=== PATIENT | male | born 1965 | race African-American/Black ===

== ENCOUNTER 2016-05-15 14:49 | Inpatient (IN) | payer MEDICAID ==
[~2016-05-15] VITALS: Ht 172.7 cm; Wt 61.6 kg
--- NOTE | ~2016-05-15 | HEMODYNAMI ---
PATIENT:ORLANDO ELIAS JR MEDICAL RECORD: [id number] : 63 [address] [id number] ADMISSION DATE: 05/15/16 Generatedon:05/17/201612:27 Patient name: ORLANDO ELIAS Patient #: [id number] SSN: : 1965 Date of study: 05/17/2016 Page: Of Hemodynamic Procedure Report Patient Data Patient Demographics Procedure consent was obtained First Name: ORLANDO Gender: Male Last Name: JADA Suffix: Patient #: [id number] : 1965 Age: 50 year(s) Accession #: Race: Black [id number] Additional ID: [id number] Contact details [address]: [address] [place] [address] [place] State: [place] City: [place] Zip code: [address] Past Medical History Allergies: No known allergies Admission Admission Data Admission Date: 05/15/2016 Admission Time: 19:31 Room #: [facility] Procedure Procedure Types Cath Procedure Peripheral Cath Diagnostic Procedure Miscellaneous Peripheral vascular Intervention Angioplasty Angioplasty Fem/Pop Procedure Description Procedure Date Procedure Date: 05/17/2016 Procedure Start Time: 10:06 Procedure Staff Name Function Uri Alatorre MD Performing Physician Ketty Nye RT Scrub Robyn De La Garza RN Nurse Irineo Hussein RT Monitor Procedure Data Cath Procedure Fluoroscopy Diagnostic fluoroscopy Total fluoroscopy Time: time: 17.7 min 17.7 min Diagnostic fluoroscopy Total fluoroscopy dose: 136 dose: 136 mGy mGy Contrast Material Contrast Material Type Amount (ml) Isovue 370 0 Procedure Medications Medication Administration Route Dosage Ancef (1Gm/50ml NS) I.V.P.B 1 g Versed I.V. 2 mg Heparin Bolus I.V. 5000 units Fentanyl I.V. 50 mcg Versed I.V. 2 mg Fentanyl I.V. 50 mcg Nitroglycerin IC/IA I.A. 200 mcg Heparin Bolus I.V. 3000 units Nitroglycerin IC/IA I.A. 200 mcg Nitroglycerin IC/IA I.A. 500 mcg Hemodynamics Rest Heart Rate: 89 (bpm) Snapshots Pre Cath Intra NCS Post Cath Vital Signs Time Heart Resp SPO2 NIBP (mmHg) Rhythm Pain Sedation Rate (ipm) (%) Status Level (bpm) 9:46:28 90 15 98 161/110(133) NSR 0 (11) 10(A) , No pain 9:50:43 94 12 100 176/115(140) NSR 0 (11) 10(A) , No pain 9:55:00 89 11 100 151/107(143) NSR 0 (11) 10(A) , No pain 9:59:12 83 11 100 160/105(142) NSR 0 (11) 10(A) , No pain 10:03:29 86 10 100 157/104(128) NSR 0 (11) 10(A) , No pain 10:07:42 90 11 100 161/107(138) NSR 0 (11) 10(A) , No pain 10:11:59 87 10 100 161/102(138) NSR 0 (11) 10(A) , No pain 10:16:14 87 11 100 161/105(135) NSR 0 (11) 10(A) , No pain 10:20:29 89 12 100 134/99(120) NSR 0 (11) 9(A) , No pain 10:24:34 88 13 100 136/96(116) NSR 0 (11) 9(A) , No pain 10:28:44 90 12 100 130/84(106) NSR 0 (11) 9(A) , No pain 10:32:48 85 15 135/92(119) NSR 0 (11) 9(A) , No pain 10:36:54 87 11 100 130/92(123) NSR 0 (11) 9(A) , No pain 10:40:59 87 15 100 139/90(118) NSR 0 (11) 9(A) , No pain 10:45:05 87 12 100 142/106(127) NSR 0 (11) 9(A) , No pain 10:49:13 90 11 100 148/99(128) NSR 0 (11) 9(A) , No pain 10:53:25 92 14 100 128/94(116) NSR 0 (11) 9(A) , No pain 10:57:29 90 12 100 141/94(129) NSR 0 (11) 9(A) , No pain 11:01:37 91 13 100 138/94(106) NSR 0 (11) 9(A) , No pain 11:05:45 91 12 100 119/90(113) NSR 0 (11) 9(A) , No pain 11:09:46 90 13 100 126/87(97) NSR 0 (11) 9(A) , No pain 11:13:50 90 11 100 115/87(106) NSR 0 (11) 9(A) , No pain 11:17:52 89 12 100 117/84(110) NSR 0 (11) 9(A) , No pain 11:21:51 91 12 100 124/90(120) NSR 0 (11) 9(A) , No pain 11:25:57 90 11 99 128/82(103) NSR 0 (11) 9(A) , No pain 11:30:03 90 13 100 125/81(104) NSR 0 (11) 9(A) , No pain 11:34:05 92 11 100 132/91(110) NSR 0 (11) 9(A) , No pain 11:38:08 88 12 99 128/96(121) NSR 0 (11) 9(A) , No pain 11:42:14 87 12 100 131/84(108) NSR 0 (11) 9(A) , No pain 11:46:20 85 11 100 132/87(110) NSR 0 (11) 9(A) , No pain 11:50:26 85 12 100 122/88(101) NSR 0 (11) 9(A) , No pain 11:54:29 86 11 99 120/81(117) NSR 0 (11) 9(A) , No pain 11:58:31 89 11 100 126/87(99) NSR 0 (11) 9(A) , No pain 12:02:37 84 12 100 122/82(96) NSR 0 (11) 9(A) , No pain 12:06:43 83 11 100 122/79(115) NSR 0 (11) 9(A) , No pain 12:10:46 81 13 100 133/82(117) NSR 0 (11) 9(A) , No pain 12:14:54 80 12 100 117/85(111) NSR 0 (11) 9(A) , No pain 12:18:54 128/91(119) NSR 0 (11) 9(A) , No pain 12:22:54 No Cuff NSR 0 (11) 10(A) , No pain 12:26:53 No Cuff NSR 0 (11) 9(A) , No pain Medications Time Medication Route Dose Verified Delivered Reason Notes E ffectiveness by by 9:59:02 Ancef I.V.P.B 1 g Robyn Robyn Per protocol (1Gm/50ml NS) Holli De La Garza RN RN 10:13:53 Versed I.V. 2 mg Robyn Robyn for sedation Holli De La Garza RN RN 10:20:08 Heparin Bolus I.V. 5000 Robyn Robyn for units Holli De La Garza anticoagulation RN RN 10:24:49 Fentanyl I.V. 50 Robyn Robyn for sedation mcg Holli De La Garza RN RN 10:47:13 Versed I.V. 2 mg Robyn Robyn for sedation Holli De La Garza RN RN 10:47:21 Fentanyl I.V. 50 Robyn Robyn for sedation mcg Holli De La Garza RN RN 11:05:07 Nitroglycerin I.A. 200 Robyn Uri for IC/IA mcg Holli Alatorre MD vasodilation RN 11:10:02 Heparin Bolus I.V. 3000 Robyn Robyn for units Holli De La Garza anticoagulation RN RN 11:20:50 Nitroglycerin I.A. 200 Robyn Uri for IC/IA mcg Holli Alatorre MD vasodilation RN 11:54:07 Nitroglycerin I.A. 500 Robyn Uri for IC/IA mcg Holli Alatorre MD vasodilation fingerprint clerk Log Time Note 9:43:51 Irineo Hussein RT (R) (CV) sent for patient. Start room use. 9:44:03 Time tracking: Regular hours 9:44:13 Plan of Care:Hemodynamics will remain stable., Cardiac rhythm will remain stable., Comfort level will be maintained., Respiratory function will remain adequate., Patient/ family verbilizes understanding of procedure., Procedure tolerated without complication., Recovers from procedure without complications.. 9:44:24 Patient received from CVICU to IR Alert and oriented. Tansferred to table in Supine position. 9:44:26 Correct patient and procedure confirmed by team. 9:44:28 Signed procedure consent form obtained from patient. 9:44:32 Full Disclosure recording started 9:44:33 - 9:44:36 H&P Date Dictated: 05/17/2016 Within 30 days and on chart.. 9:44:37 Pre-procedure instructions explained to patient. 9:44:38 Pre-op teaching completed and patient verbalized understanding. 9:44:45 Family in waiting room. 9:44:46 Patient NPO since Midnight. 9:44:53 Is the patient allergic to Iodine/contrast media? No. 9:44:56 Is patient on blood thinner?Yes 9:45:03 ACC The patient was administered the following blood thiners within the last 24 hours: ACCHeparin 9:45:15 tpa infusion 9:45:17 Vital chart was started 9:45:18 Baseline sample Acquired. 9:45:21 Rhythm: sinus rhythm 9:45:24 - 9:45:25 ----Pre-sedation anethsthesia assessment.---- 9:45:28 Previous problem with sedation/anesthesia? No ? 9:45:30 Snore? No 9:45:31 Sleep apnea? No 9:45:33 Deviated septum? No 9:45:36 Opens mouth fully? Yes 9:45:37 Sticks out tongue? Yes 9:45:42 Airway obstruction? No ? 9:45:44 Dentures? No ? 9:48:19 Pre procedure: right dorsailis pedis pulse Doppler 9:48:23 Pre procedure: left dorsailis pedis pulse Doppler 9:48:26 Pre procedure: right posterior tibial pulse Doppler 9:48:29 Pre procedure: left posterior tibial pulse Doppler 9:48:35 Patient pain scale 0/10 no pain. 9:48:48 IV patent on arrival in left antecubital with 0.9% NaCl at [facility]. 9:48:50 Sharps counted by scrub and verified by R.N. 9:48:52 Alarms reviewed by R. N. 9:48:58 Right groin area was prepped with chlora-prep and draped in sterile fashion 9:49:14 Use device set IR Diagnostic 9:49:15 Sterile Angiographic Pack opened to sterile field. 9:49:17 Bag Decanter opened to sterile field. 9:49:18 Acist Manifold opened to sterile field. 9:49:19 Acist Syringe opened to sterile field. 9:49:20 Acist Hand Control opened to sterile field. 9:59:02 Ancef (1Gm/50ml NS) 1 g I.V.P.B was administered by Robyn De La Garza RN ; Per protocol; 10:05:06 Procedure started. 10:05:12 Physician arrived 10:05:12 --------ALL STOP TIME OUT------ 10:05:13 Final Timeout: patient, procedure, and site verified with staff and physician. All members of the team are in agreement. 10:05:15 Right groin site verified by team. 10:05:18 Physical assessment completed. ASA score P 3 - A patient with severe systemic disease as per Uri Alatorre MD. 10:05:22 Sedation plan: IV Moderate Sedation Versed, Fentanyl 10:06:20 Local anesthetic to right femoral artery with Lidocaine 1% by Uri Alatorre MD.INITIAL ACCESS ONLY 10:08:17 Cook JUSTINE 260 guide wire opened to sterile field. 10:13:53 Versed 2 mg I.V. was administered by Robyn De La Garza RN; for sedation; 10:14:02 Terumo 5FR ANGLED 100CM glide catheter opened to sterile field. 10:17:42 Terumo 6Fr [place] Destination Sheath opened to sterile field. 10:17:52 BasixTOUCH Inflation Syringe opened to sterile field. 10:20:08 Heparin Bolus 5000 units I.V. was administered by Robyn De La Garza RN; for anticoagulation; 10:22:04 Inflation number: 1 A Cordis Powerflex Pro 3.0 x 40 x 135cm balloon was prepped and advanced across the Undefined1, then inflated to 0 JOHN for 0:00 (min:sec). 10:24:49 Fentanyl 50 mcg I.V. was administered by Robyn De La Garza RN; for sedation; 10:31:02 Inflation number: 2 A IN.PACT Admiral 5.0 x 120 x 135 DCB Balloon was prepped and advanced across the Undefined1, then inflated to 0 JOHN for 0:00 (min:sec). 10:41:55 Terumo ANGLE 260cm glide wire opened to sterile field. 10:41:55 Trailblazer 0.035 catheter opened to sterile field. 10:45:27 Terumo TORQUE DEVICE PLASTIC .038 opened to sterile field. 10:45:48 Procedure type changed to Cath procedure, Peripheral Cath Diagnostic Procedure, Miscellaneous, Peripheral vascular Intervention, Angioplasty, Angioplasty Fem/Pop 10:47:13 Versed 2 mg I.V. was administered by Robyn De La Garza RN; for sedation; 10:47:21 Fentanyl 50 mcg I.V. was administered by Robyn De La Garza RN; for sedation; 10:49:51 Melrose Sci Choice PT Floppy J 300cm 0.014 guide wi opened to sterile field. 10:50:10 Inflation number: 3 A Saber 2 x 150 x150 balloon was prepped and advanced across the Undefined1, then inflated to 0 JOHN for 0:00 (min:sec). 10:56:57 Inflation number: 4 A Saber 2.5 X 100 X 150 balloon was prepped and advanced across the Undefined1, then inflated to 0 JOHN for 0:00 (min:sec). 11:05:07 Nitroglycerin IC/IA 200 mcg I.A. was administered by Uri Alatorre MD; fo r vasodilation; 11:10:02 Heparin Bolus 3000 units I.V. was administered by Robyn De La Garza RN; for anticoagulation; 11:20:50 Nitroglycerin IC/IA 200 mcg I.A. was administered by Uri Alatorre MD; fo r vasodilation; 11:37:00 St Johnny 6Fr sheath opened to sterile field. 11:54:07 Nitroglycerin IC/IA 500 mcg I.A. was administered by Uri Alatorre MD; fo r vasodilation; 11:58:33 CRAGG-CELSO 10cm infusion catheter opened to sterile field. 12:00:54 [facility] 260 .035 glide wire opened to sterile field. 12:03:51 SUTURE ETHILON 2-0 BLK MONO FS opened to sterile field. 12:06:41 Procedure ended.(Physican Out) 12:08:44 Fluoroscopy time 17.70 minutes. 12:08:51 Fluoroscopy dose: 136 mGy 12:08:51 Flurop Dose total: 136 12:08:56 Contrast amount:Isovue 370 0ml. 12:08:58 Sharps counted by scrub and verified by R.N. 12:09:01 Insertion/operative site no bleeding no hematoma. 12:09:04 Post-op/insertion site Right Femoral artery dressed using a 4 x 4 and Tegaderm. 12:09:08 Post right femoral artery:stable 12:17:24 Post procedure: right dorsailis pedis pulse Doppler. 12:17:30 Post procedure: right posterior tibial pulse Doppler. 12:17:42 Post procedure: left posterior tibial pulse 0-Absent. 12:17:53 Post procedure: left dorsailis pedis pulse 0-Absent. 12:17:57 Post-procedure physical assessment completed. ASA score P 3 - A patient with severe systemic disease as per Uri Alatorre MD. 12:18:00 Post procedure rhythm: unchanged. 12:18:02 Post procedure instruction explained to patient.Patient verbalizes understanding. 12:18:08 Procedure and supply charges have been captured, reviewed, submitted an d are correct. 12:26:55 Report given to CVICU. 12:26:59 Patient transfered to CVICU with Bed. 12:27:31 Vital chart was stopped Intervention Summary Intervention Notes Time ActionType Lesion and Equipment Action# Pressure Duration Attributes Used 10:22:04 Inflate Undefined1 Cordis 1 0 00:00 balloon Powerflex Pro 3.0 x 40 x 135cm balloon 10:31:02 Inflate Undefined1 IN.PACT 2 0 00:00 balloon Admiral 5.0 x 120 x 135 DCB Balloon 10:50:10 Inflate Undefined1 Saber 2 x 3 0 00:00 balloon 150 x150 balloon 10:56:57 Inflate Undefined1 Saber 2.5 4 0 00:00 balloon X 100 X 150 balloon Device Usage Item Name Manufacture Quantity Catalog Number [facility] Lot# / Charge Number Stock Stock Serial# Code Sterile Cardinal 1 [id number] 5 Angiographic Health Pack Bag Decanter Microtek 1 [id number] 27833 150036 5 Medical Inc. Acist Manifold Acist 1 59026 545448 313811 889889 5 Medical Systems Inc Acist Syringe Acist 1 97032 401738 632219 317326 20 Medical Systems Inc Acist Hand Acist 1 39353 267392 381504 398768 5 Control Medical Systems Inc Cook FLETCHER 260 Cook Medical 1 [id number] 887893 420369 5 1878220 guide wire Terumo 5FR Terumo 1 CG508 993918 70026 968196 4 ANGLED 100CM glide catheter Terumo 6Fr Terumo 1 RSR01 820672 07749 380965 5 [place] Destination Sheath BasixTOUCH Merit 1 [id number] 726858 593461 122725 5 Inflation Medical Syringe Cordis Cardinal 1 [id number] 435458 401086 502947 5 Powerflex Pro Health 3.0 x 40 x 135cm balloon IN.PACT Medtronic 1 [id number] 443494 718413 519093 5 [id number] Admiral 5.0 x 120 x 135 DCB Balloon Terumo ANGLE Terumo 1 [id number] 413228 400766 405971 5 260cm glide wire Trailblazer Medtronic 1 [id number] 295568 38541 916075 5 0.035 catheter Terumo TORQUE [place] 1 TD01 897191 472059 797348 5 DEVICE PLASTIC Scientific .038 [place] Sci Melrose 1 [id number] 436498 683450 894029 5 [id number] Choice PT Scientific Floppy J 300cm 0.014 guide wi Saber 2 x 150 Cardinal 1 [id number] 042913 141715 5 x150 balloon Health Saber 2.5 X Cardinal 1 [id number] 874235 387938 5 [address] X [address] St Johnny 1 581720 642307 849773 5 2335910 sheath BROOKS Ev3 1 28061-47 884803 678467 5 10cm infusion catheter [facility] 1 [id number] 533520 467704 5 [id number] [facility] 260 .035 glide wire SUTURE ETHILON Ethicon 1 664 617760 920978 5 2-0 BLK MONO FS Signature Audit Cisco Stage Time Signature Unsigned Intra-Procedure 05/17/2016 Irineo 12:27:28 PM Keenan RT (R) (CV) Signatures Monitor : Irineo Signature : Keenan RT Date : Time : [id number] [place] [address]
--- NOTE | ~2016-05-15 | HEMODYNAMI ---
PATIENT:ORLANDO ELIAS JR MEDICAL RECORD: [id number] : 63 [address] [id number] ADMISSION DATE: 05/15/16 Generatedon:05/18/201614:10 Patient name: ORLANDO ELIAS Patient #: [id number] SSN: : 1965 Date of study: 05/18/2016 Page: Of Hemodynamic Procedure Report Patient Data Patient Demographics Procedure consent was obtained First Name: ORLANDO Gender: Male Last Name: JADA Suffix: Patient #: [id number] : 1965 Age: 50 year(s) Accession #: Race: Black [id number] Additional ID: [id number] Contact details [address]: [address] [place] [address] [place] State: [place] City: [place] Zip code: [address] Past Medical History Allergies: No known allergies Admission Admission Data Admission Date: 05/15/2016 Admission Time: 19:31 Room #: [facility] Procedure Procedure Types Cath Procedure Peripheral Cath Diagnostic Procedure Abd/Extremity Extremities Left Lower Ext Arterio Follow Up Arteriogram Procedure Description Procedure Date Procedure Date: 05/18/2016 Procedure Start Time: 13:33 Procedure Staff Name Function Ramon Thakur MD Performing Physician Ketty Nye RT Scrub Yolanda Nelson RN Nurse Irineo Hussein RT Monitor Procedure Data Cath Procedure Fluoroscopy Diagnostic fluoroscopy Total fluoroscopy Time: 0.9 time: 0.9 min min Diagnostic fluoroscopy Total fluoroscopy dose: 15 dose: 15 mGy mGy Contrast Material Contrast Material Type Amount (ml) Isovue 300 36 Procedure Medications Medication Administration Route Dosage Oxygen NC 3 l/min Heparin Flush Bag added to field 3 bags (1000units/500ml NS) Lidocaine 1% added to field 20 Versed I.V. 1 mg Fentanyl I.V. 50 mcg Versed I.V. 1 mg Fentanyl I.V. 50 mcg Reopro 7.6 ml (Bolus-2mg/ml) Versed I.V. 1 mg Fentanyl I.V. 50 mcg Reopro Drip I.V. drip 21 ml/hr (4.5ml/250NS) Hemodynamics Rest Heart Rate: 87 (bpm) Snapshots Pre Cath Intra NCS Post Cath Vital Signs Time Heart Resp SPO2 NIBP (mmHg) Rhythm Pain Sedation Rate (ipm) (%) Status Level (bpm) 13:12:50 98 165/112(150) NSR 0 (11) 10(A) , No pain 13:17:08 97 172/103(156) NSR 0 (11) 10(A) , No pain 13:21:26 88 12 100 148/105(143) NSR 0 (11) 10(A) , No pain 13:26:25 90 12 100 Measuring NSR 0 (11) 10(A) , No pain 13:27:47 90 10 100 Time NSR 0 (11) 10(A) Exceeded , No pain 13:32:22 88 10 100 136/98(129) NSR 0 (11) 10(A) , No pain 13:36:32 86 10 100 142/89(118) NSR 0 (11) 9(A) , No pain 13:40:25 92 9 94 140/88(101) NSR 0 (11) 9(A) , No pain 13:44:25 91 9 94 116/80(102) NSR 0 (11) 10(A) , No pain 13:48:29 89 10 96 119/82(112) NSR 0 (11) 9(A) , No pain 13:52:34 89 10 94 124/84(107) NSR 0 (11) 9(A) , No pain 13:56:42 86 8 96 133/85(111) NSR 0 (11) 9(A) , No pain 14:00:54 88 9 95 128/81(107) NSR 0 (11) 9(A) , No pain 14:05:02 88 8 95 137/85(113) NSR 0 (11) 10(A) , No pain 14:09:02 No Cuff NSR 0 (11) 10(A) , No pain Medications Time Medication Route Dose Verified Delivered Reason Note s Effectiveness by by 13:19:43 Oxygen NC 3 l/min Yolanda Yolanda Per protocol King DERICK Nelson RN 13:19:56 Heparin Flush added 3 bags Yolanda Yolanda used for Bag to King DERICK Nelson RN procedure (1000units/500ml field NS) 13:20:06 Lidocaine 1% added 20ml Yolanda Yolanda for local to vial King DERICK Nelson RN anesthetic field 13:28:04 Fentanyl I.V. 50 mcg Yolanda Yolanda for sedation King DERICK Nelson RN 13:28:57 Versed I.V. 1 mg Yolanda Yolanda for sedation King DERICK Nelson RN 13:35:35 Versed I.V. 1 mg Yolanda Yolanda for sedation King DERICK Nelson RN 13:35:39 Fentanyl I.V. 50 mcg Yolanda Yolanda for sedation King DERICK Nelson RN 13:46:41 Versed I.V. 1 mg Yolanda Yolanda for sedation King DERICK Nelson RN 13:47:48 Fentanyl I.V. 50 mcg Yolanda Yolanda for sedation King DERICK Nelson RN 13:48:40 Reopro IA 7.6 ml Yolanda Ramon used for (Bolus-2mg/ml) Omar DERICK Thakur procedure 14:03:49 Reopro Drip I.V. 21ml/hr Yolanda Yolanda for (4.5ml/250NS) drip King DERICK Nelson DERICK anticoagulation Procedure Log Time Note 13:03:10 Time tracking: Regular hours 13:03:16 Plan of Care:Hemodynamics will remain stable., Cardiac rhythm will remain stable., Comfort level will be maintained., Respiratory function will remain adequate., Patient/ family verbilizes understanding of procedure., Procedure tolerated without complication., Recovers from procedure without complications.. 13:03:28 Patient received from CVICU to IR Alert and oriented. Tansferred to table in Supine position. 13:08:27 Correct patient and procedure confirmed by team. 13:08:29 Warm blankets applied, and sisi hugger turned on for patient comfort. 13:08:36 Signed procedure consent form obtained from patient. 13:08:38 Full Disclosure recording started 13:08:38 - 13:08:42 H&P Date Dictated: 05/18/2016 Within 30 days and on chart.. 13:08:44 Pre-procedure instructions explained to patient. 13:08:44 Pre-op teaching completed and patient verbalized understanding. 13:11:11 Family in patients room. 13:11:27 Patient NPO since Breakfast. 13:11:39 Baseline sample Acquired. 13:11:39 Vital chart was started 13:11:43 Rhythm: sinus rhythm 13:11:52 Is the patient allergic to Iodine/contrast media? No. 13:11:53 Is patient on blood thinner?Yes 13:11:56 ACC The patient was administered the following blood thiners within the last 24 hours: ACCHeparin 13:12:06 pt.on tpa drip 13:12:10 ----Pre-sedation anethsthesia assessment.---- 13:12:12 Previous problem with sedation/anesthesia? No ? 13:12:14 Snore? No 13:12:16 Sleep apnea? No 13:12:21 Deviated septum? No 13:12:23 Opens mouth fully? Yes 13:12:25 Sticks out tongue? Yes 13:12:28 Airway obstruction? No ? 13:12:31 Dentures? No ? 13:12:32 - 13:12:37 Pre procedure: right dorsailis pedis pulse Doppler 13:12:46 Pre procedure: right posterior tibial pulse Doppler 13:12:50 Pre procedure: left dorsailis pedis pulse Doppler 13:12:54 Pre procedure: left posterior tibial pulse 0-Absent 13:13:00 Patient pain scale 0/10 no pain. 13:13:17 IV patent on arrival in left antecubital with 0.9% NaCl at [facility]. 13:13:18 Sharps counted by scrub and verified by R.N. 13:13:24 Right groin area was prepped with betadine and draped in sterile fashio n 13:13:29 Use device set IR Diagnostic 13:13:30 Sterile Angiographic Pack opened to sterile field. 13:13:30 Bag Decanter opened to sterile field. 13::43 Oxygen 3 l/min NC was administered by Yolanda Nelson RN; Per protocol; 13:19:56 Heparin Flush Bag (1000units/500ml NS) 3 bags added to field was administered by Yolanda Nelson RN; used for procedure; 13:20:06 Lidocaine 1% 20ml vial added to field was administered by Yolanda Nelson RN; for local anesthetic; 13::43 Physician arrived 13::43 --------ALL STOP TIME OUT------ 13::44 Final Timeout: patient, procedure, and site verified with staff and physician. All members of the team are in agreement. 13::47 Right groin site verified by team. 13::51 Physical assessment completed. ASA score P 3 - A patient with severe systemic disease as per Ramon Thakur MD. 13:27:54 Sedation plan: IV Moderate Sedation Versed, Fentanyl 13:28:04 Fentanyl 50 mcg I.V. was administered by Yolanda Nelson RN; for sedation; 13:28:57 Versed 1 mg I.V. was administered by Yolanda Nelson RN; for sedation; 13:32:59 Procedure started. 13:33:02 Local anesthetic to right femoral artery with Lidocaine 1% by Ramon Thakur MD.INITIAL ACCESS ONLY 13:35:35 Versed 1 mg I.V. was administered by Yolanda Nelson RN; for sedation; 13:35:39 Fentanyl 50 mcg I.V. was administered by Yolanda Nelson RN; for sedation; 13:46:41 Versed 1 mg I.V. was administered by Yolanda Nelson RN; for sedation; 13:47:48 Fentanyl 50 mcg I.V. was administered by Yolanda Nelson RN; for sedation; 13:48:40 Reopro (Bolus-2mg/ml) 7.6 ml IA was administered by Ramon Thakur MD; used for procedure; 13:48:55 Cook DOC .035 guide wire opened to sterile field. 13:52:11 ANGIOSEAL-VIP PLUS 6 FR opened to sterile field. 13:52:30 Procedure ended.(Physican Out) 13:53:15 Fluoroscopy time 00.90 minutes. 13:53:19 Fluoroscopy dose: 15 mGy 13:53:19 Flurop Dose total: 15 13:54:57 Contrast amount:Isovue 300 36ml. 13:56:27 Post-op/insertion site Right Femoral artery dressed using a 4 x 4 and Tegaderm. 13:57:03 Post right femoral artery:stable 13:58:21 Post Procedure Pulses reassessed and unchanged 13:58:26 Post-procedure physical assessment completed. ASA score P 3 - A patient with severe systemic disease as per Ramon Thakur MD. 13:58:39 Post procedure rhythm: unchanged. 13:58:42 Post procedure instruction explained to patient.Patient verbalizes understanding. 13:58:43 Procedure and supply charges have been captured, reviewed, submitted an d are correct. 13:59:32 Report given to CVICU. 14:03:49 Reopro Drip (4.5ml/250NS) 21ml/hr I.V. drip was administered by Yolanda Nelson RN; for anticoagulation; 14:09:12 Patient transfered to CVICU with Bed. 14:10:09 Vital chart was stopped Device Usage Item Name Manufacture Quantity Catalog Hospital Part Current [facility] l Lot# / Number Charge Number Stock Stock Serial# Code Sterile [place] 1 [id number] 5 Angiographic Health Pack Bag Decanter [employer] 1 [id number] 5 [employer] Cook DOC .035 [employer] 1 [id number] 5 [id number] guide wire ANGIOSEAL-[facility] [place] 1 [id number] 5 [id number] PLUS 6 FR Signature Audit [place] Stage Time Signature Unsigned Intra-Procedure 05/18/2016 Irineo 2:10:07 PM Keenan RT (R) (CV) Signatures Monitor : Irineo Signature : Keenan RT Date : Time : [address] [place] [address]
--- NOTE | ~2016-05-15 | HEMODYNAMI ---
PATIENT:ORLANDO ELIAS JR MEDICAL RECORD: [id number] : 63 LOCATION:[address] ADMISSION DATE: 05/15/16 Generatedon:05/16/201613:22 Patient name: ORLANDO ELIAS Patient #: [id number] SSN: : 1965 Date of study: 05/16/2016 Page: Of Hemodynamic Procedure Report Patient Data Patient Demographics Procedure consent was obtained First Name: ORLANDO Gender: Male Last Name: JADA Suffix: Patient #: [id number] : 1965 Age: 50 year(s) Accession #: Race: Black [id number] Additional ID: [id number] Contact details Address: [address] [place] [address] [place] State: [place] City: [place] Zip code: [address] Past Medical History Allergies: No known allergies Admission Admission Data Admission Date: 05/15/2016 Admission Time: 19:31 Room #: 2120 Procedure Procedure Types Cath Procedure Peripheral Cath Diagnostic Procedure Abd/Extremity Extremities Left Lower Ext Arterio Procedure Description Procedure Date Procedure Date: 05/16/2016 Procedure Start Time: 11:39 Procedure Staff Name Function Uri Alatorre MD Performing Physician Ketty Nye RT Scrub Robyn De La Garza RN Nurse Irineo Hussein RT Monitor Yolanda Nelson RN Nurse Procedure Data Cath Procedure Fluoroscopy Diagnostic fluoroscopy Total fluoroscopy Time: time: 11.5 min 11.5 min Diagnostic fluoroscopy Total fluoroscopy dose: 208 dose: 208 mGy mGy Contrast Material Contrast Material Type Amount (ml) Isovue 300 72 Entry Location Entry Primary Successful Side Size Upsize 1 Upsize Entry Closure Naranjo ccessful Closure Location (Fr) (Fr) 2 (Fr) Remarks Device Remarks Femoral Right 5 Fr 6 Fr artery Mid-Length Diagnostic catheters Device Type Used For End Catheter Placement Merit ULTRA BOLUS FLUSH 5Fr 65CM catheter Procedure Medications Medication Administration Route Dosage Oxygen NC 3 l/min Heparin Flush Bag added to field 3 bags (1000units/500ml NS) Lidocaine 1% added to field 20 Fentanyl I.V. 50 mcg Versed I.V. 1 mg Fentanyl I.V. 50 mcg Versed I.V. 1 mg Fentanyl I.V. 50 mcg Versed I.V. 1 mg Versed I.V. 1 mg Fentanyl I.V. 50 mcg Heparin Bolus I.V. 5000 units TPA 10 Benadryl I.V. 50 mg Hydralizine I.V. 20 mg Ancef (1Gm/50ml NS) I.V.P.B 1 g Lopressor I.V. 5 mg Versed I.V. 1 mg Fentanyl I.V. 50 mcg Heparin Drip units/hr (06122lpwqg/250 D5W) TPA 12.5 Versed I.V. 1 mg Fentanyl I.V. 50 mcg Hemodynamics Rest Heart Rate: 121 (bpm) Snapshots Pre Cath Intra NCS Post Cath Vital Signs Time Heart Resp SPO2 NIBP (mmHg) Rhythm Pain Status Sedation Rate (ipm) (%) Level (bpm) 11:21:05 119 14 100 169/129(152) NSR 10 (11) , 10(A) Unimaginable unspeakable 11:25:21 122 13 100 176/125(157) ST 10 (11) , 10(A) Unimaginable unspeakable 11:29:39 120 14 100 181/128(143) ST 10 (11) , 10(A) Unimaginable unspeakable 11:33:59 120 11 100 174/123(147) ST 10 (11) , 10(A) Unimaginable unspeakable 11:38:24 121 19 100 167/77(103) ST 9 (11) , 10(A) Excruciating unbearable 11:42:40 119 9 100 168/123(146) ST 4 (11) , 10(A) Distressing 11:46:55 117 10 100 178/128(152) ST 0 (11) , No 9(A) pain 11:51:14 120 9 100 175/127(150) ST 0 (11) , No 9(A) pain 11:55:32 117 14 100 169/124(146) ST 4 (11) , 10(A) Distressing 11:59:48 118 9 100 173/122(145) ST 0 (11) , No 9(A) pain 12:04:06 119 8 100 173/127(149) ST 0 (11) , No 9(A) pain 12:08:22 120 9 100 182/126(150) ST 0 (11) , No 9(A) pain 12:12:42 118 9 100 172/129(147) ST 0 (11) , No 9(A) pain 12:16:58 120 11 100 180/131(155) ST 0 (11) , No 9(A) pain 12:21:16 124 9 100 177/125(156) ST 0 (11) , No 9(A) pain 12:25:32 126 12 100 159/114(129) ST 0 (11) , No 9(A) pain 12:29:42 134 16 100 151/111(128) ST 0 (11) , No 9(A) pain 12:33:52 137 20 100 148/110(125) ST 0 (11) , No 9(A) pain 12:38:00 138 21 100 151/108(124) ST 0 (11) , No 9(A) pain 12:42:08 130 21 99 148/105(125) ST 0 (11) , No 9(A) pain 12:46:16 105 17 100 167/113(140) ST 0 (11) , No 9(A) pain 12:50:29 102 17 99 168/115(139) ST 0 (11) , No 9(A) pain 12:54:43 103 16 99 165/109(133) ST 0 (11) , No 9(A) pain 12:58:57 104 19 98 154/85(133) ST 0 (11) , No 9(A) pain 13:03:07 106 17 99 153/103(130) ST 0 (11) , No 10(A) pain 13:07:17 109 18 99 162/115(135) ST 0 (11) , No 10(A) pain Medications Time Medication Route Dose Verified Delivered Reason N otes Effectiveness by by 11:24:15 Oxygen NC 3 l/min Yolanda Yolanda Per protocol King DERICK Nelson RN 11:24:31 Heparin Flush added to 3 bags Yolanda Yolanda used for Bag field King DERICK Nelson RN procedure (1000units/500ml NS) 11:24:43 Lidocaine 1% added to 20ml Yolanda Yolanda for local field vial Omar RN Omar RN anesthetic 11:25:08 Fentanyl I.V. 50 mcg Yolanda Yolanda for left foot King DERICK Nelson RN 11/21 pain 11:31:18 Versed I.V. 1 mg Yolanda Yolanda for sedation King DERICK Nelson RN 11:31:24 Fentanyl I.V. 50 mcg Yolanda Yolanda for left foot King DERICK Nelson RN 11/21 pain 11:41:45 Versed I.V. 1 mg Yolanda Yolanda for sedation King DERICK Nelson RN 11:41:59 Fentanyl I.V. 50 mcg Yolanda Yolanda for left foot King DERICK Nelson RN 09/21 pain 11:48:51 Versed I.V. 1 mg Yolanda Yolanda for sedation King DERICK Nelson RN 11:57:59 Versed I.V. 1 mg Yolanda Yolanda for sedation King DERICK Nelson RN 11:58:05 Fentanyl I.V. 50 mcg Yolanda Yolanda for left foot King DERICK Nelson RN 09/21 pain 12:10:45 Heparin Bolus I.V. 5000 Yolanda Yolanda for units King DERICK Nelson RN anticoagulation 12:14:54 TPA Angiojet 10 Yolanda Uri LLE mg/100ml King DERICK Alatorre MD NS 12:17:48 Benadryl I.V. 50 mg Yolanda Yolanda for sedation King DERICK Nelson RN 12:22:10 Hydralizine I.V. 20 mg Yolanda Yolanda for King DERICK Nelson RN hypertension 12:22:24 Ancef (1Gm/50ml I.V.P.B 1 g Yolanda Yolanda prophylactic NS) King DERICK Nelson RN 12:41:07 Lopressor I.V. 5 mg Robyn Robyn for tachycardia Holli Holli RN RN 12:45:43 Versed I.V. 1 mg Robny Robyn for sedation Holliluis armando Duronaway RN RN 12:45:51 Fentanyl I.V. 50 mcg Robyn Robyn for left foot Holli Duronaway 8/10 pain RN RN 12:55:14 Heparin Drip IA R units/hr Robyn Grewal for ([id number]/250 groin Holli Alatorre MD anticoagulation D5W) sheath RN 12:58:33 TPA IA R 12.5 Robyn Grewal for groin mg/250ml Holli Alatorre MD anticoagulation catheter NS RN 13:05:33 Versed I.V. 1 mg Yolanda Yolanda for sedation King DERICK Nelson RN 13:05:49 Fentanyl I.V. 50 mcg Yolanda Yolanda for left foot King DERICK Nelson RN pain Procedure Log Time Note 11:05:22 Irineo Hussein RT (R) (CV) sent for patient. Start room use. 11:05:37 Time tracking: Regular hours 11:05:49 Patient received from PCU to IR Alert and oriented. Tansferred to table in Supine position. 11:05:50 Correct patient and procedure confirmed by team. 11:05:52 Signed procedure consent form obtained from patient. 11:05:53 ECG and BP/O2 sat monitors applied to patient. 11:05:54 Full Disclosure recording started 11:05:54 - 11:05:59 H&P Date Dictated: 05/16/2016 Within 30 days and on chart.. 11:06:00 Pre-procedure instructions explained to patient. 11:06:00 Pre-op teaching completed and patient verbalized understanding. 11:06:02 Family in waiting room. 11:06:04 Patient NPO since Midnight. 11:08:22 Use device set IR Diagnostic 11:08:24 Bag Decanter opened to sterile field. 11:08:25 Sterile Angiographic Pack opened to sterile field. 11:08:26 Acist Manifold opened to sterile field. 11:08:26 Acist Hand Control opened to sterile field. 11:08:27 Acist Syringe opened to sterile field. 11:08:34 Is the patient allergic to Iodine/contrast media? No. 11:08:36 Is patient on blood thinner?No 11:08:44 Patient diabetic? No. 11:08:47 - 11:08:47 ----Pre-sedation anethsthesia assessment.---- 11:08:54 Previous problem with sedation/anesthesia? No ? 11:08:55 Snore? No 11:08:57 Sleep apnea? No 11:08:59 Deviated septum? No 11:09:00 Opens mouth fully? Yes 11:09:01 Sticks out tongue? Yes 11:09:04 Airway obstruction? No ? 11:09:06 - 11:09:08 Dentures? No ? 11:09:15 Pre procedure: right posterior tibial pulse Doppler 11:09:19 Pre procedure: right dorsailis pedis pulse 0-Absent 11:09:27 Pre procedure: left dorsailis pedis pulse 0-Absent 11:09:32 Pre procedure: left posterior tibial pulse 0-Absent 11:09:38 Patient pain scale 0/10 no pain. 11:09:47 Sharps counted by scrub and verified by R.N. 11:09:47 Alarms reviewed by R. N. 11:09:50 Bilateral groins area was prepped with chlora-prep and draped in steril e fashion 11:17:13 Vital chart was started 11:17:14 Baseline sample Acquired. 11:17:19 Rhythm: sinus bradycardia 11:20:45 Dr Alatorre in. Talking with patient. 11:24:15 Oxygen 3 l/min NC was administered by Yolanda Nelson RN; Per protocol; 11:24:31 Heparin Flush Bag (1000units/500ml NS) 3 bags added to field was administered by Yolanda Nelson RN; used for procedure; 11:24:43 Lidocaine 1% 20ml vial added to field was administered by Yolanda Nelson RN; for local anesthetic; 11:25:08 Fentanyl 50 mcg I.V. was administered by Yolanda Nelson RN; for left foot 10/10 pain; 11:30:33 Physician arrived 11:30:33 --------ALL STOP TIME OUT------ 11:30:34 Final Timeout: patient, procedure, and site verified with staff and physician. All members of the team are in agreement. 11:30:37 Bilateral groins site verified by team. 11:30:43 Physical assessment completed. ASA score P 3 - A patient with severe systemic disease as per Uri Alatorre MD. 11:30:48 Sedation plan: IV Moderate Sedation Versed, Fentanyl 11:31:18 Versed 1 mg I.V. was administered by Yolanda Nelson RN; for sedation; 11:31:24 Fentanyl 50 mcg I.V. was administered by Yolanda Nelson RN; for left foot 10/10 pain; 11:39:46 Procedure started. 11:39:54 Local anesthetic to right femoral artery with Lidocaine 1% by Uri Alatorre MD.INITIAL ACCESS ONLY 11:40:07 A shipbeat ULTRA BOLUS FLUSH 5Fr 65CM catheter was advanced over the wire and used for . 11:40:08 TUBING, CONTRAST INJCTN HI PRES opened to sterile field. 11:40:09 St Johnny 5FR Sheath opened to sterile field. 11:40:10 Micropuncture VSI 4FR kit opened to sterile field. 11:40:12 [employer] DOC .035 guide wire opened to sterile field. 11:40:23 A 5 Fr sheath was inserted into the Right Femoral artery 11:41:45 Versed 1 mg I.V. was administered by Yolanda Nelson RN; for sedation; 11:41:59 Fentanyl 50 mcg I.V. was administered by Yolanda Nelson RN; for left foot 8/10 pain; 11:48:51 Versed 1 mg I.V. was administered by Yolanda Nelson RN; for sedation; 11:49:44 Terumo TORQUE DEVICE PLASTIC .038 opened to sterile field. 11:50:41 Terumo 5FR ANGLED 65CM glide catheter opened to sterile field. 11:53:30 Terumo ANGLE 180L glide wire opened to sterile field. 11:57:45 Terumo 6Fr Hollis Destination Sheath opened to sterile field. 11:57:45 Cook FLETCHER 260 guide wire opened to sterile field. 11:57:53 Sheath upsized to a 6 Fr Mid-Length. 11:57:59 Versed 1 mg I.V. was administered by Yolanda Nelson RN; for sedation; 11:58:05 Fentanyl 50 mcg I.V. was administered by Yolanda Nelson RN; for left foot 8/10 pain; 12:00:14 CXI SUPPORT .035 135 CM STR catheter opened to sterile field. 12:04:12 Terumo ANGLE 260cm glide wire opened to sterile field. 12:05:00 Angiojet Solent Omni 6Fr Catheter opened to sterile field. 12:10:45 Heparin Bolus 5000 units I.V. was administered by Yolanda Nelson RN; for anticoagulation; 12:14:54 TPA 10 mg/100ml NS Angiojet was administered by Uri Alatorre MD; LLE; 12:17:48 Benadryl 50 mg I.V. was administered by Yolanda Nelson RN; for sedation; 12:22:10 Hydralizine 20 mg I.V. was administered by Yolanda Nelson RN; for hypertension; 12:22:24 Ancef (1Gm/50ml NS) 1 g I.V.P.B was administered by Yolanda Nelson RN; prophylactic; 12:41:07 Lopressor 5 mg I.V. was administered by Robyn De La Garza RN; for tachycardia; 12:45:43 Versed 1 mg I.V. was administered by Robyn De La Garza RN; for sedation; 12:45:51 Fentanyl 50 mcg I.V. was administered by Robyn De La Garza RN; for left foot 8/10 pain; 12:46:11 CRAGG-CELSO 50cm infusion catheter opened to sterile field. 12:53:07 SUTURE ETHILON 2-0 BLK MONO FS opened to sterile field. 12:55:14 Heparin Drip (61719jjxgv/250 D5W) units/hr IA R groin sheath was administered by Uri Alatorre MD; for anticoagulation; 12:56:00 Procedure ended.(Physican Out) 12:56:21 Fluoroscopy time 11.50 minutes. 12:56:28 Fluoroscopy dose: 208 mGy 12:56:28 Flurop Dose total: 208 12:56:35 Contrast amount:Isovue 300 72ml. 12:56:37 Sharps counted by scrub and verified by R.N. 12:57:22 Insertion/operative site no bleeding no hematoma. 12:58:11 Post-op/insertion site Right Femoral artery dressed using a 4 x 4 and Tegaderm. 12:58:17 Post right femoral artery:stable 12:58:33 TPA 12.5 mg/250ml NS IA R groin catheter was administered by Uri Alatorre MD; for anticoagulation; 12:58:37 sheath sutured in with 2.0 ethilon 12:58:40 Post Procedure Pulses reassessed and unchanged 12:58:45 Post-procedure physical assessment completed. ASA score P 3 - A patient with severe systemic disease as per Uri Alatorre MD. 12:58:50 Post procedure rhythm: unchanged. 12:58:52 Procedure and supply charges have been captured, reviewed, submitted an d are correct. 13:05:10 Finch catheter inserted.. 13:05:33 Versed 1 mg I.V. was administered by Yolanda Nelson RN; for sedation; 13:05:49 Fentanyl 50 mcg I.V. was administered by Yolanda Nelson RN; for left foot pain; 13:20:40 Report given to CVICU. 13:20:44 Patient transfered to CVICU with Bed. 13:22:46 Vital chart was stopped Device Usage Item Name Manufacture Quantity Catalog Number Hospital Part Current [facility] Lot# / Charge Number Stock Stock Serial# Code Bag Decanter Microtek 1 [id number] [id number] 5 Medical Inc. Sterile Cardinal 1 [id number] 536884 757438 5 Angiographic Health Pack Acist Manifold Acist 1 49199 196921 539811 010146 5 Medical Systems Inc Acist Hand Acist 1 10981 395339 944507 072960 5 Control Medical Systems Inc Acist Syringe Acist 1 60336 883289 097669 664602 20 Medical Systems Inc Merit ULTRA Merit 1 [id number] 085410 098721 5 BOLUS FLUSH Medical 5Fr 65CM catheter TUBING, Merit 1 [id number] 858760 601703 631461 5 CONTRAST Medical INJCTN [place] PRES [facility] 5FR [facility] Johnny 1 [id number] 281809 023084 5 [id number] Sheath Micropuncture VSI VASCULAR 1 7266V 247630 513643 5 VSI 4FR kit SOLUTIONS Cook DOC .035 Cook Medical 1 [id number] 346410 714286 5 [id number] guide wire Terumo TORQUE Acworth 1 TD01 459774 955507 957524 5 DEVICE Algisys .038 Terumo 5FR Terumo 1 CG507 873409 773098 5 ANGLED 65CM glide catheter Terumo ANGLE Terumo 1 MT0981 136860 229893 836745 5 180L glide wire Terumo 6Fr Terumo 1 RSR01 989604 93851 214808 5 Hollis Destination Sheath Cook FLETCHER 260 Cook Medical 1 F38795 423707 653274 5 5239120 guide wire CXI SUPPORT Amanda Medical 1 N12568 021884 700018 5 6592332 .035 135 CM STR catheter Terumo ANGLE Terumo 1 BB0334 394648 763995 834520 5 260cm glide wire Angiojet Acworth 1 235719-140 485456 482547 444196 1 Solent Omni Scientific 6Fr Catheter CRAGG-CELSO Ev3 1 46172-10 218336 344279 5 [id number] 50cm infusion catheter SUTURE ETHILON Ethicon 1 664H 492727 066781 5 2-0 BLK MONO FS Signature Audit [place] Stage Time Signature Unsigned Intra-Procedure 05/16/2016 Irineo 1:22:43 PM Keenan RT (R) (CV) Signatures Monitor : Irineo Signature : Keenan RT Date : Time : [facility] [address] [place] [address]
[~2016-05-15 14:49] MED LIST: ASPIRIN81 MG PO; COREG25 MG PO; NORVASC10 MG PO; PLAVIX75 MG PO; PRAVACHOL20 MG PO
[2016-05-15 15:58] LABS: BASOPHILS 0.3 % (0.0-2.0); EOSINOPHILS 0.1 % (0-7); HEMATOCRIT 40.7 % (42.0-54.0); HEMOGLOBIN 14.1 g/dL (13.5-17.5); IMMATURE GRANULOCYTES 0.5 % (0-5); LYMPHOCYTES 12.4 % (15-50); MCH 29.5 pg (26.0-34.0); MCHC 34.6 g/dL (31.0-37.0); MCV 85.1 fL (80.0-100.0); MEAN PLATELET VOLUME 9.6 fL (7.4-10.4); NEUTROPHILS 79.7 % (40-80); RBC 4.78 10x6/uL (4.20-6.10); RDW 14.9 % (11.5-14.5); WBC 17.3 10x3/uL (4.8-10.8)
[2016-05-15 16:09] LABS: PLATELET COUNT 318 10x3/uL (130-400)
[2016-05-15 16:16] LABS: APTT 26.2 SECONDS (22.8-39.4); INR 1.05 (0.85-1.17); PROTIME 13.6 SECONDS (11.6-15.0)
[2016-05-15 17:01] LABS: ALBUMIN 3.5 g/dL (3.4-5.0); ANION GAP 19.4 mmol/L (8-16); BILIRUBIN - TOTAL 0.64 mg/dL (0.2-1.3); CALCIUM 10.4 mg/dL (8.5-10.1); CARBON DIOXIDE 25.7 mmol/L (21.0-32.0); CREATININE - SERUM 1.2 mg/dL (0.6-1.3); POTASSIUM - SERUM 4.1 mmol/L (3.5-5.1); PROTEIN - SERUM 8.8 g/dL (6.4-8.2)
--- NOTE | 2016-05-15 21:30 | NUR ---
RECEIVED PT TO ROOM 2120 ALERT O X3. MOTHER AT BEDSIDE. ASSESS AND HISTORY COMPLETE. MEDS UPDATED ON MED REC FOR MD REVIEW IN AM. SCHEDULED MEDS GIVEN ORDERED.
[2016-05-15 21:32] VITALS: BP 148/102
--- NOTE | 2016-05-15 23:24 | NUR ---
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 NEEDS ADDRESSED AT THIS TIME. CALL LIGHT IN REACH. WILL CONT TO MONITOR.
[2016-05-16] VITALS (13 sets, daily range): BP systolic 104–190; BP diastolic 72–124; BMI 22.5
--- NOTE | 2016-05-16 07:26 | NUR ---
ASSESSMENT COMPLETED. LEFT LEG WITH NO PULSE, RIGHT LEG WITH WEAK PULSE.FEET ARE COLD. C/O PAIN MOST OF THE TIME.LEFT AC IV WITH NS AT 75. DR. BURGESS HERE
--- NOTE | 2016-05-16 09:20 | NUR ---
PERMIT SIGNED FOR IR. NO NEEDS VOICED
--- NOTE | 2016-05-16 13:39 | NUR ---
TO CVI2 POST ARTERIALGRAM.
--- NOTE | 2016-05-16 13:55 | NUR ---
REC'D PT FROM IR, PT AAOX4, SHEATH TO RIGHT GROIN, PT INSTRUCTED TO KEEP BOTH LEGS STRAIGHT. PT VERBALIZED UNDERSTANDING. DRESSING TO RIGHT GROIN, CDI. L AC PIV S/L, DRESSING CDI. RIGHT PEDAL PULSE DOPPLERED, LEFT PEDAL PULSE ABSENT, UNABLE TO PALPATE OR DOPPLER, INFORMED. VSS, SHIFT ASSESSMENT COMPLETED, SEE FLOW SHEET. ROOM FREE OF CLUTTER, CALL LIGHT IN REACH, WILL CONTINUE TO MONITOR PT.
[2016-05-16 17:15] LABS: BASOPHILS 0.5 % (0.0-2.0); EOSINOPHILS 1.2 % (0-7); HEMATOCRIT 41.1 % (42.0-54.0); HEMOGLOBIN 13.9 g/dL (13.5-17.5); IMMATURE GRANULOCYTES 0.4 % (0-5); MCH 29.4 pg (26.0-34.0); MCHC 33.8 g/dL (31.0-37.0); MCV 86.9 fL (80.0-100.0); MEAN PLATELET VOLUME 9.7 fL (7.4-10.4); MONOCYTES 7.6 % (2-11); NEUTROPHILS 70.3 % (40-80); PLATELET COUNT 336 10x3/uL (130-400); RBC 4.73 10x6/uL (4.20-6.10); RDW 15.5 % (11.5-14.5); WBC 17.1 10x3/uL (4.8-10.8)
[2016-05-16 17:25] LABS: INR 1.07 (0.85-1.17); PROTIME 13.8 SECONDS (11.6-15.0)
[2016-05-16 17:37] LABS: APTT 36.4 SECONDS (22.8-39.4)
--- NOTE | 2016-05-16 19:00 | NUR ---
Assessment completed per flowsheet, received patient resting in bed with eyes open. Patient AO x4, Eyes PERRLA @ 3mm with brisk response. S1/S2 noted with patient NSR on telemetry, rhythmic and regular. Breathing is even and unlabored, lung sounds clear all burgess. Abdomen is soft and round, non-tender with bowel sounds Active x4. Finch secured in place, concentrated yellow urin noted in collection. R groin cath sheath noted, dressing CDI with no bleeding noted and soft to palpation. Full ROM upper extremities, lower extremities cold to touch and painful to touch. Pedal pulses weak with doppler, popliteal palpable bilateral. 20g PIV noted L AC, patent with fluids infusing. C/O pain 5/10 bilateral feet, burning and tingling. MARKET MASTER pain control in use, educated patient on use with expressed comprehension. No further needs at this time, all VSS and will continue to monitor.
--- NOTE | 2016-05-16 21:00 | NUR ---
No visitors at this time, patient resting in bed with eyes open. Patient denies needs at this time, all VSS and will continue to monitor.
[2016-05-16 22:46] LABS: APTT 40.9 SECONDS (22.8-39.4); INR 1.06 (0.85-1.17); PROTIME 13.6 SECONDS (11.6-15.0)
--- NOTE | 2016-05-16 23:00 | NUR ---
Reassessment completed per flowsheet, patient resting in bed with eyes open. NSR on telemetry with HR 84, rhythmic and regular. Breathing is even and unlabored on room air, O2 sat 97%. R groin soft with dressing CDI no bleeding noted, sheath patent with no drainage. Both feet cold to touch, pedal pulses weak doppler. Patient states pain 2/10 in feet, constant burning/tingling felt. Elevated feet on pillow, patient states relief. All VSS and will continue to monitor.
[2016-05-16 23:17] LABS: BASOPHILS 0.3 % (0.0-2.0); EOSINOPHILS 0.9 % (0-7); HEMATOCRIT 37.4 % (42.0-54.0); HEMOGLOBIN 12.4 g/dL (13.5-17.5); IMMATURE GRANULOCYTES 0.4 % (0-5); LYMPHOCYTES 13.4 % (15-50); MCHC 33.2 g/dL (31.0-37.0); MCV 87.6 fL (80.0-100.0); MONOCYTES 6.6 % (2-11); NEUTROPHILS 78.4 % (40-80); PLATELET COUNT 356 10x3/uL (130-400); RBC 4.27 10x6/uL (4.20-6.10); RDW 15.8 % (11.5-14.5); WBC 14.9 10x3/uL (4.8-10.8)
[2016-05-17] VITALS (22 sets, daily range): BP systolic 111–151; BP diastolic 62–93; Ht 172.7 cm; Wt 61.6 kg
--- NOTE | 2016-05-17 01:10 | NUR ---
Patient IV "came out" L wrist, resited to L upper arm. Patent with fluids infusing. All VSS and will continue to monitor.
--- NOTE | 2016-05-17 02:52 | NUR ---
Reassessment completed per flowsheet, patient resting in bed with eyes closed. NSR on telemetry with HR 84, rhythmic and regular. Breathing is even and unlabored on room air, O2 sat 99%. R groin dressing CDI with no bleeding noted, soft and non-tender to palpation. Patient NPO for IR procedure in AM. Denies other needs at this time, all VSS and will continue to monitor.
[2016-05-17 04:48] LABS: BASOPHILS 0.6 % (0.0-2.0); EOSINOPHILS 1.9 % (0-7); HEMATOCRIT 38.9 % (42.0-54.0); HEMOGLOBIN 12.8 g/dL (13.5-17.5); IMMATURE GRANULOCYTES 0.3 % (0-5); LYMPHOCYTES 22.4 % (15-50); MCH 28.6 pg (26.0-34.0); MCHC 32.9 g/dL (31.0-37.0); MEAN PLATELET VOLUME 9.6 fL (7.4-10.4); MONOCYTES 7.4 % (2-11); NEUTROPHILS 67.4 % (40-80); PLATELET COUNT 330 10x3/uL (130-400); RBC 4.47 10x6/uL (4.20-6.10); RDW 15.7 % (11.5-14.5); WBC 12.4 10x3/uL (4.8-10.8)
[2016-05-17 05:01] LABS: APTT 38.4 SECONDS (22.8-39.4)
[2016-05-17 05:09] LABS: ANION GAP 15.6 mmol/L (8-16); CALCIUM 9.2 mg/dL (8.5-10.1); CARBON DIOXIDE 24.4 mmol/L (21.0-32.0); CREATININE - SERUM 1.2 mg/dL (0.6-1.3)
--- NOTE | 2016-05-17 05:12 | NUR ---
Patient resting in bed with eyes open, breathing is even and unlabored. Bilateral lower extremities warm to touch, Pedal pulses weakly palpable. No further needs at this time, all VSS and will continue to monitor.
--- NOTE | 2016-05-17 07:30 | NUR ---
REPORT RECIEVED FROM ENGINEERING ADMINISTRATOR NURSE. PT RESTING IN BED QUIETLY. STATES HIS PAIN IS CONTROLLED WITH MEDICAL BILLING AND CODING INSTRUCTOR. SHEATH TO RIGHT GROIN. DRESSING INTACT. PEDAL PULSES FOUND EASILY USING DOPPLER. PT REMAINS NPO FOR PROCEDURE IN IR. CALL LIGHT IN REACH. BED IN LOW POSITION. WILL CONTINUE TO ASSESS FOR CHANGES THROUGHOUT SHIFT.
--- NOTE | 2016-05-17 07:45 | NUR ---
IR NURSE AT BEDSIDE. UPDATE PROVIDED.
--- NOTE | 2016-05-17 09:34 | NUR ---
IR AT BEDSIDE TO TRANSPORT PT.
--- NOTE | 2016-05-17 13:00 | NUR ---
RETURNED FROM IR. ATTACHED TO ICU MONITORS. VSS. DRESSING TO RIGHT GROIN WITH SOME BLOOD. OUTLINED TO MONITOR. INSTRUCTED TO KEEP RIGHT LEG STRAIGHT. VERBALIZED UNDERSTANDING.
--- NOTE | 2016-05-17 14:00 | NUR ---
JAXON AT BEDSIDE. CONSENTS FOR ANESTHESIA AND PROCEDURE SIGNED.
--- NOTE | 2016-05-17 14:19 | NUR ---
JAXON COMPLETED. PT TOLERATED WELL. VSS. WILL CONTINUE TO MONITOR.
[2016-05-17 15:44] LABS: EOSINOPHILS 2.8 % (0-7); HEMATOCRIT 38.8 % (42.0-54.0); HEMOGLOBIN 12.3 g/dL (13.5-17.5); IMMATURE GRANULOCYTES 0.4 % (0-5); LYMPHOCYTES 24.1 % (15-50); MCH 28.8 pg (26.0-34.0); MCHC 31.7 g/dL (31.0-37.0); MEAN PLATELET VOLUME 9.6 fL (7.4-10.4); MONOCYTES 11.1 % (2-11); NEUTROPHILS 60.6 % (40-80); PLATELET COUNT 280 10x3/uL (130-400); RBC 4.27 10x6/uL (4.20-6.10); RDW 16.2 % (11.5-14.5); WBC 14.8 10x3/uL (4.8-10.8)
[2016-05-17 15:45] LABS: MCV 90.9 fL (80.0-100.0)
--- NOTE | 2016-05-17 16:00 | NUR ---
ICE WATER REFRESHED. PT INSTRUCTED TO REMAIN FLAT. CALL LIGHT IN REACH.
[2016-05-17 16:42] LABS: APTT 39.2 SECONDS (22.8-39.4); INR 0.96 (0.85-1.17); PROTIME 12.6 SECONDS (11.6-15.0)
--- NOTE | 2016-05-17 18:00 | NUR ---
NO CHANGES NOTED AT THIS TIME. RESTING IN BED QUIETLY.
--- NOTE | 2016-05-17 19:30 | NUR ---
Assessment completed per flowsheet, received patient resting in bed with eyes closed. AO x4, cooperative and calm. Eyes PERRLA @ 3mm with brisk response, sclera is white. S1/S2 noted with patient NSR on telemetry with HR 82, rythmic and regular. Breathing is even and unlabored on room air, Lung sounds clear all burgess. Abdomen is soft and round, bowel sounds active x4. R groin cath dressing CDI with blood spot noted on gauze, site soft to palpation with no bleeding noted. Finch secured in place with dark concentrated urine, sediment noted in collection bag. R leg immobilized from sheath placement, Full ROM remaining extremities. Upper pulses palpable, popliteal pulses palpable with pedal weak doppler. 20g PIV noted L upper arm, patent with fluids infusing. Catapres patch noted L upper chest. Patient denies pain or other needs at this time, all VSS and will continue to monitor.
--- NOTE | 2016-05-17 21:00 | NUR ---
Patient family at bedside, updated on condition with no questions at this time. All VSS and will conitinue to monitor.
[2016-05-17 22:22] LABS: BASOPHILS 0.7 % (0.0-2.0); EOSINOPHILS 3.5 % (0-7); HEMATOCRIT 34.5 % (42.0-54.0); HEMOGLOBIN 11.3 g/dL (13.5-17.5); IMMATURE GRANULOCYTES 0.3 % (0-5); LYMPHOCYTES 19.8 % (15-50); MCH 28.9 pg (26.0-34.0); MCHC 32.8 g/dL (31.0-37.0); MONOCYTES 8.1 % (2-11); NEUTROPHILS 67.6 % (40-80); PLATELET COUNT 271 10x3/uL (130-400); RBC 3.91 10x6/uL (4.20-6.10); RDW 15.9 % (11.5-14.5); WBC 11.7 10x3/uL (4.8-10.8)
[2016-05-17 22:23] LABS: APTT 38.8 SECONDS (22.8-39.4); INR 1.01 (0.85-1.17); PROTIME 13.2 SECONDS (11.6-15.0)
[2016-05-17 22:25] LABS: MCV 88.2 fL (80.0-100.0)
--- NOTE | 2016-05-17 22:53 | NUR ---
Reassessment completed per flowsheet, patient resting in bed with eyes closed. NSR on telemetry with HR 86, rhythmic and regular. Breathing is even and unlabored on room air, O2 sat 94%. R groin dressing CDI with no bleeding noted, site is soft to palpation. Pedal pulses weak with doppler, skin warm to touch. Denies pain or other needs at this time, all VSS and will continue to monitor.
[2016-05-18] VITALS (27 sets, daily range): BP systolic 115–170; BP diastolic 68–100
--- NOTE | 2016-05-18 01:10 | NUR ---
Patient resting in bed with eyes closed, assisted with repositioning for comfort. No bleeding noted from sheath site, incision site soft to palpation. No further needs at this time, all VSS and will continue to monitor.
--- NOTE | 2016-05-18 03:00 | NUR ---
Reassessment completed per flowsheet, patient resting in bed with eyes closed. Patient NSR on telemetry with HR 79, rhythmic and regular. Breathing is even and unlabored on room air, O2 sat 97%. Cath dressing CDI, site soft to palpation with no bleeding noted. Pedal pulses weak doppler, skin warm to touch. No further needs at this time, all VSS and will continue to monitor.
[2016-05-18 05:30] LABS: BASOPHILS 0.8 % (0.0-2.0); EOSINOPHILS 3.8 % (0-7); HEMATOCRIT 33.8 % (42.0-54.0); HEMOGLOBIN 11.1 g/dL (13.5-17.5); IMMATURE GRANULOCYTES 0.4 % (0-5); LYMPHOCYTES 19.4 % (15-50); MCHC 32.8 g/dL (31.0-37.0); MCV 88.3 fL (80.0-100.0); MEAN PLATELET VOLUME 9.2 fL (7.4-10.4); MONOCYTES 9.5 % (2-11); NEUTROPHILS 66.1 % (40-80); PLATELET COUNT 272 10x3/uL (130-400); RBC 3.83 10x6/uL (4.20-6.10); RDW 15.7 % (11.5-14.5); WBC 11.5 10x3/uL (4.8-10.8)
--- NOTE | 2016-05-18 05:30 | NUR ---
Patient resting in bed with eyes closed, Chlorhexidine bath given with no difficulty. Patient denies other needs at this time, all VSS and will continue to monitor.
[2016-05-18 06:45] LABS: APTT 34.6 SECONDS (22.8-39.4); INR 0.99 (0.85-1.17)
--- NOTE | 2016-05-18 07:00 | NUR ---
Received report and assumed care of patient. Patient is currently asleep, arouses easily. Left upper arm PIv infusing dilaudid VIDEO SYSTEMS ENGINEER and NS. Right groin sheath with CathFlo and Heparin infusing per orders. Finch cath draining dark urine. Vitals stable. Room air. See shift assessment flowsheet for all findings.
--- NOTE | 2016-05-18 08:15 | NUR ---
Patient denies needs, sleeping in between care. Mother at bedside.
[2016-05-18 10:14] LABS: BASOPHILS 0.7 % (0.0-2.0); EOSINOPHILS 3.1 % (0-7); HEMATOCRIT 36.7 % (42.0-54.0); HEMOGLOBIN 11.8 g/dL (13.5-17.5); IMMATURE GRANULOCYTES 0.2 % (0-5); LYMPHOCYTES 17.5 % (15-50); MCH 28.6 pg (26.0-34.0); MCHC 32.2 g/dL (31.0-37.0); MCV 88.9 fL (80.0-100.0); MEAN PLATELET VOLUME 8.9 fL (7.4-10.4); MONOCYTES 9.4 % (2-11); NEUTROPHILS 69.1 % (40-80); PLATELET COUNT 286 10x3/uL (130-400); RBC 4.13 10x6/uL (4.20-6.10); RDW 15.8 % (11.5-14.5); WBC 12.9 10x3/uL (4.8-10.8)
[2016-05-18 10:24] LABS: APTT 32.5 SECONDS (22.8-39.4); INR 1.02 (0.85-1.17); PROTIME 13.2 SECONDS (11.6-15.0)
--- NOTE | 2016-05-18 11:00 | NUR ---
Patient to be going to IR shortly. Patient denies pain, denies needs. Mother remains at bedside.
--- NOTE | 2016-05-18 12:50 | NUR ---
Patient taken to IR via bed by IR team.
--- NOTE | 2016-05-18 14:45 | NUR ---
Patient returned from IR with team. Patient connected to monitors, VSS. Right sheath d/c'd per IR, site is clean, dry intact and soft to touch. Post Tib and Dorsailis Pedis pulses found via doppler bilaterally. Feet are warm to touch. Right forearm PIV started for Reopro gtt. Reopro gtt started on pump per orders. Patient set up with a drink, HOB slightly elevated, educated patient on keeping right leg straight. Call button in reach. Patients mother at bedside.
--- NOTE | 2016-05-18 15:15 | NUR ---
here to see patient. Order for PRN med for SBP > 160 received.
[2016-05-18 15:51] LABS: BASOPHILS 0.6 % (0.0-2.0); EOSINOPHILS 3.4 % (0-7); HEMATOCRIT 31.5 % (42.0-54.0); IMMATURE GRANULOCYTES 0.3 % (0-5); LYMPHOCYTES 19.6 % (15-50); MCH 28.5 pg (26.0-34.0); MCHC 31.7 g/dL (31.0-37.0); MCV 89.7 fL (80.0-100.0); MONOCYTES 10.5 % (2-11); NEUTROPHILS 65.6 % (40-80); PLATELET COUNT 246 10x3/uL (130-400); RBC 3.51 10x6/uL (4.20-6.10); RDW 15.7 % (11.5-14.5); WBC 11.3 10x3/uL (4.8-10.8)
[2016-05-18 16:00] LABS: INR 1.13 (0.85-1.17); PROTIME 14.4 SECONDS (11.6-15.0)
[2016-05-18 16:01] LABS: APTT 30.3 SECONDS (22.8-39.4)
--- NOTE | 2016-05-18 16:41 | NUR ---
Patient resting at this time. Pulses remain dopplerable bilaterally, feet are warm to touch. Right groin access site is soft and dressing is CDI. VSS.
--- NOTE | 2016-05-18 18:19 | NUR ---
Heparin gtt initiated per verbal order when patient returned from construction laborer. Apresoline given for SBP > 160. Dinner tray orderm dietary called, they will bring up. Pulses dopplerable bilaterally. Right groin access site remains soft, dressing c/d/i.
--- NOTE | 2016-05-18 19:25 | NUR ---
ASSESSMENT COMPLETED. SEE ASSESSMENT FLOWSHEET. AWAKE, ALERT, ORIENTED. FLAT/DEPRESSED AFFECT WHEN ANSWERING QUESTIONS ASKED. RT GROIN OLD PUNCTURE SITE C/D/I WITHOUT PRESENCE OF BLEEDING OR HEMATOMA. BILATERAL LE'S WARM TO TOUCH AND WEAK PALPABLE PULSE TO PEDAL AREA. CONFIRMED PRESENCE OF PULSE VIA DOPPLER. LEES CATHETER TO GRAVITY DRAINING CLEAR, CARO URINE. SOME SEDIMENT NOTED. WOMAN (MOTHER) AT BEDSIDE. LEFT UPPER ARM PIV INTACT WNL WITH NS @ 75ML/HR AND DILAUDID ROLLER VARNISHER PRN @ 0.2MG Q 10 MIN. RT FOREARM 20G PIV WITH REOPRO @ 12.2ML/HR OR 0.125 MCG/KG/MIN AND HEPARIN GTT @ 1,000 UNITS/HR. WILL MONITOR.
--- NOTE | 2016-05-18 19:30 | NUR ---
DINNER TRAY AT BEDSIDE. CUT UP MEAT FOR HIM. ATE APPROX. 25%.
--- NOTE | 2016-05-18 20:52 | NUR ---
2100 MED GIVEN. NO DIFFICULTY SWALLOWING. ICE CREAM GIVEN PER REQUEST.
--- NOTE | 2016-05-18 23:45 | NUR ---
REASSESSMENT COMPLETED. SEE ASSESSMENT FLOWSHEET. NO NEW ACUTE CHANGES NOTED. LAB-HEAD SAWYER HERE TO DRAW 0000 PTT FOR HEPARIN GTT. FEET TOUCHING THE BOTTOM OF BED AND AGREED TO BE PULLED UP. DRAW SHEET APPLIED TO BEDDING BY TURNING SIDE TO SIDE. POSTERIOR SIDE WITHOUT SKIN BREAKDOWN NOTED. PULLED UP AND INCREASED HOB TO COMFORT-30 DEGREES. PULSES WEAKLY PALPABLE TO LE'S PEDAL PULSE. FEET WARM TO TOUCH. WILL MONITOR.
[2016-05-19] VITALS (23 sets, daily range): BP systolic 112–158; BP diastolic 69–99
--- NOTE | 2016-05-19 00:18 | NUR ---
INCREASED HEPARIN GTT TO 1100 UNITS/HR PER PROTOCOL. AWAKENED. DENIES NEEDS. WILL MONITOR.
--- NOTE | 2016-05-19 01:55 | NUR ---
IV PUMP BEEPING. ARM BENT. RESTARTED PUMP. DENIES NEEDS.
--- NOTE | 2016-05-19 03:30 | NUR ---
REASSESSMENT COMPLETED. SEE ASSESSMENT FLOWSHEET. NO NEW ACUTE CHANGES NOTED. USING DILAUDID CLINICAL QUALITY MANAGER WHEN HE AWOKE FOR ASSESSMENT. REPORTS PAIN 10/10 TO "TOES". TOES WARM TO TOUCH AND WEAK PALPABLE PEDAL PULSE. WILL MONITOR. DENIES NEEDS.
--- NOTE | 2016-05-19 05:30 | NUR ---
EYES CLOSED. TREE CHIPPER BUTTON IN LEFT HAND. REOPRO WITH APPROX. 2 HOURS LEFT TBA. NO ACUTE DISTRESS NOTED. WILL MONITOR.
[2016-05-19 06:31] LABS: HEMATOCRIT 37.4 % (42.0-54.0); MCH 28.9 pg (26.0-34.0); MCHC 32.4 g/dL (31.0-37.0); MCV 89.5 fL (80.0-100.0); MEAN PLATELET VOLUME 9.6 fL (7.4-10.4); RBC 4.18 10x6/uL (4.20-6.10)
[2016-05-19 06:33] LABS: HEMOGLOBIN 12.1 g/dL (13.5-17.5); WBC 14.6 10x3/uL (4.8-10.8)
--- NOTE | 2016-05-19 06:40 | NUR ---
LEES CATHETER CARE COMPLETED. OLD, DRIED BLOODY CRUST AROUND TIP OF PENIS REMOVED. DENIES NEEDS AT PRESENT. WILL MONITOR.
[2016-05-19 06:47] LABS: APTT 46.1 SECONDS (22.8-39.4)
--- NOTE | 2016-05-19 06:50 | NUR ---
INCREASED HEPARIN GTT TO 1200 UNITS/HR PER HEPARIN PROTOCOL.
--- NOTE | 2016-05-19 10:25 | NUR ---
NUTRITION MONITORING & EVAL. CHART REVIEWED, PT VISIT. 100% INTAKE BREAKFAST. REG DIET. WILL HONOR FOOD PREFERENCES, MONITOR PT PROGRESS, PO INTAKE. RD FOLLOWING
--- NOTE | 2016-05-19 11:01 | NUR ---
0715-RECIEVED AWAKE AND ALERT-LITTLE VERBAL INTERACTION-STATES L FOOT CONTINUE PAIN LEVEL -NOT ABLE TO IDENTIFY #-NOTED WITH DOPPLER ABLE TO IDENTIFY PULSE CHECK AT ALL DIGIT POINTS ON L FOOT-ON R FOOT ONLY AT LARGE TOE DIGIT-BOTH FEET HOT TO TOUCH-REPRO INFUSION IN PROGRESSS-HEP GTT AT 1200UNITS/H
--- NOTE | 2016-05-19 14:18 | NUR ---
AMBULATED IN HALLWAY-ASSISTED BACK TO BED
--- NOTE | 2016-05-19 16:11 | NUR ---
Patient Name: ORLANDO ELIAS Admission Status: ER Accout number: [id number] Admission Date: 05-15-2016 : 1965 Admission Diagnosis:ATHSCL WHITE EARTH ARTERIES OF EXTREMITIES W REST PAIN, LEFT Attending: DIGNA Current LOS: 4 Anticipated DC Date: 05-20-2016 Planned Disposition: Home Primary Insurance: [place] PRIVATE OPTIONS [place] Is the patient Alert and Oriented? Yes * How many steps to enter\exit or inside your home? NONE * PCP PT STATES DR GARCIA IS ONLY DOCTOR HE HAS SEEN RECENTLY * Pharmacy [facility] [address] * Preadmission Environment Home with Family * ADLs Independent * List name and contact numbers for known caregivers / representatives who currently or will assist patient after discharge: HAFSA MOSS, MOTHER, [phone] * Community resources currently utilized None * Additional services required to return to the preadmission environment? No * Can the patient safely return to the preadmission environment? Yes * Has this patient been hospitalized within the prior 30 days at any hospital? No Discharge Planning Comments: CM MET WITH PATIENT TO ASSESS DC PLAN/NEEDS. PT STATED HE LIVES AT HOME WITH HIS MOTHER AND IS INDEPENDENT IN HIS CARE/ADL'S. STATED HE AMBULATES WITH NO ASSISTANCE AND HAS NO DME/MEDICAL EQUIPMENT AT HOME. REPORTS NEVER HAVING HH OR REHAB SERVICES IN THE PAST AND DENIED NEED FOR HH/REHAB SERVICES AT DISCHARGE. HE VERBALIZED FRUSTRATION WITH BEING ABLE TO AFFORD HIS MEDICATIONS AND REPORTED HAVING HIGH CO-PAYS FOR SOME OF HIS MEDICATIONS. DR TOSHIA CONTRERAS'S NURSE, HAD SPOKEN WITH MIKE EARLIER IN THE DAY TO INQUIRE IF PT'S INSURANCE COVERED ELIQUIS. CM PLACED CALL TO LOPEZ BARRETT TO CONFIRM IF ELIQUIS IS COVERED AND SHE RESEARCHED PT'S INSURANCE PLAN AND INFORMED THAT ELIQUIS IS COVERED WITH NO CO-PAY TO THE PATIENT. CM INFORMED DERICK CONTRERAS OF ABOVE. CM INFORMED LOPEZ BARRETT CM WITH [employer] ASSIGNED TO THIS PATIENT, THAT PT VOICED SOME CONCERNS ABOUT COST OF SOME OF HIS MEDICATIONS AND SHE STATED SHE HAS MET WITH THIS PATIENT AT HIS BEDSIDE THIS ADMISSION AND DISCUSSED OPTIONS WITH HIM AND PROVIDED HER CONTACT NUMBER FOR HIM TO CALL WITH ANY NEEDS AT DISCHARGE. CM ALSO PROVIDED PATIENT WITH LOPEZ'S CONTACT NUMBERS AGAIN TO CONFIRM HE HAD HER PHONE NUMBERS TO CALL IF THERE WERE ANY ISSUES GETTING HIS MEDICATIONS FILLED AT DISCHARGE. PT VOICED NO OTHER DC NEEDS. CM WILL FOLLOW AND ASSIST WITH FURTHER DC NEEDS THEY ARISE. LOPEZ BARRETT, PRINTING SCREEN ASSEMBLER WITH [facility], CONTACT INFO: OFFICE: [phone] TOLL FREE: [phone] WORK CELL: [phone] Senior Software Engineer: Perla Pimentel RN, CM
--- NOTE | 2016-05-19 19:20 | NUR ---
SHIFT ASSESSMENT COMPLETED. SEE ASSESSMENT FLOWSHEET. MOTHER AT BEDSIDE. RT FOREARM PIV INTACT WITH HEPARIN INFUSING @ 1300 UNITS/HR. LEFT UPPER ARM PIV WITH NS @ 75ML/HR AND DILAUDID PHOTO PRINT SPECIALIST 0.2MG Q 10 MIN PRN FOR PAIN. BIALTERAL PEDAL PULSES AUDIBLE BY DOPPLER. BOTH FEET WARM TO TOUCH. LEFT WARMER THAN RIGHT. RT GROIN OLD PUNCTURE SITE C/D/I, NO HEMATOMA OR BLEEDING. WILL MONITOR.
[2016-05-19 19:26] LABS: APPEARANCE CLEAR (CLEAR); BILIRUBIN NEGATIVE (NEGATIVE); COLOR YELLOW (YELLOW); GLUCOSE NEGATIVE (NEGATIVE); KETONE NEGATIVE (NEGATIVE); LEUKOCYTE ESTERASE 2+ (NEGATIVE); NITRITE NEGATIVE (NEGATIVE); PROTEIN TRACE mg/dL (NEGATIVE); SPECIFIC GRAVITY 1.015 (1.005-1.020); UROBILINOGEN NORMAL (NORMAL)
[2016-05-19 19:27] LABS: BACTERIA FEW /hpf (NONE SEEN)
--- NOTE | 2016-05-19 20:19 | NUR ---
I.R. SUPERVISOR TELEVISION CHASSIS REPAIR PAGED IN REGARD TO POSSIBLE ORDER TO D/C HEPARIN GTT.
--- NOTE | 2016-05-19 20:20 | NUR ---
SPOKE WITH DR. TOUSSAINT VIA PHONE REGARDING PROGRESS NOTES OF D/C'ING HEPARIN GTT. NEW ORDERS RECEIVED. DR. TOUSSAINT CONCERNED ABOUT ANTI-COAGULANTS AND TO VERIFY ORDERS WITH DR. POPE.
--- NOTE | 2016-05-19 20:30 | NUR ---
DR. POPE CALLED AND ORDERS CLARIFIED OF ANTI-COAGULANTS. CONTINUS REGIMEN PRESCRIBED.
--- NOTE | 2016-05-19 20:50 | NUR ---
2100 MEDS GIVEN. TOOK HORSE RACE TIMER OFF DUE TO BEING IN BED AT THIS TIME. TEACHING DONE ABOUT ONCE DILAUDID PEAT SHREDDER TENDER EMPTY WILL START P.O. PAIN MEDS IF NEEDED. ASKED QUESTIONS AND QUESTIONS ANSWERED TO THE LEVEL OF HIS UNDERSTANDING.
--- NOTE | 2016-05-19 22:50 | NUR ---
GAVE NEW CUP OF WATER. UNIFORM ROOM ATTENDANT BUTTON GIVEN TO HIM DUE TO REQUEST FOR PAIN AND STILL SOME DILAUDID UNIFORM ROOM ATTENDANT LEFT. WILL MONITOR.
[2016-05-20] VITALS (23 sets, daily range): BP systolic 109–148; BP diastolic 63–91
--- NOTE | 2016-05-20 | NUR ---
REASSESSMENT COMPLETED. SEE ASSESSMENT FLOWSHEET. NO NEW ACUTE CHANGES NOTED. WILL MONITOR.
--- NOTE | 2016-05-20 02:00 | NUR ---
HAS BLANKET LAID UP OVER HIS HEAD. NO ACUTE DISTRESS NOTED. 1ML OF APPIAN DEVELOPER DILAUDID LEVEL. WILL MONITOR.
--- NOTE | 2016-05-20 03:20 | NUR ---
I & O'S COMPLETED. REASSESSMENT COMPLETED. SEE ASSESSMENT FLOWSHEET. AUDIBLE PEDAL PULSES BY DOPPLER BILATERALLY. SVP DIGITAL SALES FOOD & COOKING EMPTY. REPORTS PAIN TO FEET STILL AND INFORMED WILL GIVE PRN PAIN PILL IN ONE HOUR. VERBALIZED UNDERSTANDING. WILL MONITOR.
--- NOTE | 2016-05-20 04:20 | NUR ---
FRANCESCA SORIA AT BEDSIDE FINISHING DRAWING AM LABS. PRN PAIN PILL GIVEN. SALINE LOCKED RT FOREARM PIV AND HEPARIN GTT AND OLD TUBING FOR SENIOR BUSINESS ARCHITECT THROW AWAY. WATER GIVEN PER REQUEST. WILL MONITOR.
[2016-05-20 04:24] LABS: BASOPHILS 0.7 % (0.0-2.0); EOSINOPHILS 5.1 % (0-7); HEMATOCRIT 31.6 % (42.0-54.0); HEMOGLOBIN 10.2 g/dL (13.5-17.5); IMMATURE GRANULOCYTES 0.3 % (0-5); LYMPHOCYTES 19.4 % (15-50); MCHC 32.3 g/dL (31.0-37.0); MEAN PLATELET VOLUME 9.2 fL (7.4-10.4); NEUTROPHILS 65.5 % (40-80); PLATELET COUNT 324 10x3/uL (130-400); RBC 3.64 10x6/uL (4.20-6.10); RDW 15.3 % (11.5-14.5); WBC 12.3 10x3/uL (4.8-10.8)
[2016-05-20 04:25] LABS: MCV 86.8 fL (80.0-100.0)
[2016-05-20 04:37] LABS: CALC OSMOLALITY 266 mosm/kg (275-300); CALCIUM 8.9 mg/dL (8.5-10.1); CARBON DIOXIDE 25.4 mmol/L (21.0-32.0); CHLORIDE - SERUM 100 mmol/L (98-107); GLUCOSE 99 mg/dL (74-106); POTASSIUM - SERUM 3.9 mmol/L (3.5-5.1); SODIUM 134 mmol/L (136-145); UREA NITROGEN 9 mg/dL (7-18); eGFR NON AFRICAN AMERICAN 84 mL/min (90-120)
--- NOTE | 2016-05-20 05:45 | NUR ---
CALL LIGHT FELL TO THE GROUND. BLANKET OVER HIS HEAD AND SAID "I AM GOING TO GET MORE REST". NO ACUTE DISTRESS NOTED. WILL MONITOR.
--- NOTE | 2016-05-20 07:50 | NUR ---
BREAKFEST TRAY BROUGHT-PT ASLEEP WITH SHEETS OVER HEAD-NOTED SR ON MONITOR-NIBP CUFF IN PLACE--NOTED ?MOTHER SITTING IN CHAIR BY WINDOW -APPEARS ASLEEP WELL
--- NOTE | 2016-05-20 10:27 | NUR ---
0900-AWAKENED REQUESTING PAIN MEDICINE FOR L FOOT-L ARM IV SALINE LOCKED-NOTED CONTINUES WITHDRAWN MANNER-NOTED ELDERLY LADY IDENTIFIED MOTHER -REMAINS SITTING IN CORNER-APPEARS TO BE ASLEEP 0930-RECHECK OF PT: NOTED ELDERLY LADY AWAKE-REQUESTING [place]-LET PT KNOW DOUBLE PORTION MEALS ORDERED, COMPLETE CONSUMED BY PT AND NONE OFFERED TO LADY PHYSICAL THERAPY AT BEDSIDE
--- NOTE | 2016-05-20 13:34 | NUR ---
1130-AMBULATING IN UNIT WITH PHYSICAL THERAPY-ASSISTED TO CHAIR 1350-LEES CATH D/C'D-TIP INTACT-ENCOURAGED TO AMBULATE BATHROOM -PT REQUESTED
--- NOTE | 2016-05-20 18:09 | NUR ---
1400-AMBULATED IN HALLWAY AND WITHIN RM TO BATHROOM-SELF CARE DONE 1700-DR BRAVO AT BEDSIDE-PT IN SUPINE-DOPPLER PULSE TO L FOOT -PEDAL-DIGIT TO LARGE TOE-FAINTER DOPPLER TO NEXT 3 DIGITS-LAST DIGIT NOT DOPPLERED-NOTED PITTING EDEMA 1+-WARM TO TOUCH--NO DISCOLOURATION R FOOT DOPPLER TO PEDAL AND LARGE [id number] TO TOUCH-NO EDEMA OR DISCOLOURATION
--- NOTE | 2016-05-20 19:10 | NUR ---
SHIFT ASSESSMENT COMPLETED. SEE ASSESSMENT FLOWSHEET. STILL REPORTING ACHING PAIN TO FEET BILATERALLY. LEFT PEDAL PULSE PALPABLE. RT PEDAL PULSE AUDIBLE BY DOPPLER. +1-+2 EDEMA TO LEFT FOOT/ANKLE. HAS AMBULATED TODAY. TELEMETRY BOX REMOVED AND PLACED ON STANDBY. REMAINS ON CONTINUOUS MONITORING-NSR IN THE 80'S NOTED. SPOT CHECKED PULSE OX-99% ON ROOM AIR. BILATERAL ARM PIV'S INTACT AND SALINE LOCKED. WNL. REPORTS HE HAD A BM TODAY AND IS VOIDING PER URINAL. MOTHER WITH EYES CLOSED AT BEDSIDE. WILL MONITOR.
--- NOTE | 2016-05-20 21:00 | NUR ---
2100 MEDS GIVEN. DENIES WATER OR ANY NEEDS AT PRESENT. REPORTS THE MORE HE DRINKS THE MORE HE HAS TO URINATE. WARM BLANKET GIVEN TO VISITOR AT BEDSIDE. WILL MONITOR.
--- NOTE | 2016-05-20 22:37 | NUR ---
EYES OPEN WITH BLANKET HALF WAY ON HEAD. REPORTS NOT MUCH RELIEF IN PAIN FROM PAIN PILL. REASSESMENT COMPLETED. SEE ASSESSMENT FLOWSHEET FOR DETAILS. BILATERAL FEET WARM TO TOUCH. NO ACUTE CHANGES NOTED. WILL MONITOR.
--- NOTE | 2016-05-20 22:50 | NUR ---
REQUEST ICE FOR COKE AND "CHIPS" NO CHIPS IN UNIT. SANDWICH TRAY GIVEN PER REQUEST. WILL MONITOR.
[2016-05-21] VITALS (13 sets, daily range): BP systolic 99–147; BP diastolic 52–90
--- NOTE | 2016-05-21 00:30 | NUR ---
EYES CLOSED. NO ACUTE DISTRESS NOTED. WILL MONITOR.
--- NOTE | 2016-05-21 01:50 | NUR ---
PO PAIN PILL GIVEN PER REQUEST FOR FEET PAIN. NSR ON THE MONITOR. SPOT CHECKED O2 SATS 96-98% ON ROOM AIR. WILL MONITOR.
--- NOTE | 2016-05-21 03:50 | NUR ---
B/P MEASUREMENT FAILED. AWOKE EASILY. REASSESSMENT COMPLETED. SEE ASSESSMENT FOR DETAILS. NO NEW CHANGES NOTED. RLE PEDAL PULSE AUDIBLE BY DOPPLER. LLE PEDAL PALPABLE AND AUDIBLE BY DOPPLER. O2 SAT SPOT CHECKED AT 97% ON ROOM AIR. DENIES NEEDS. WILL MONITOR.
--- NOTE | 2016-05-21 04:20 | NUR ---
FRANCESCA SORIA AT BEDSIDE. AM LABS DRAWN.
[2016-05-21 04:43] LABS: HEMATOCRIT 30.2 % (42.0-54.0); HEMOGLOBIN 9.8 g/dL (13.5-17.5); MCH 28.1 pg (26.0-34.0); MCHC 32.5 g/dL (31.0-37.0); MCV 86.5 fL (80.0-100.0); RBC 3.49 10x6/uL (4.20-6.10); RDW 15.5 % (11.5-14.5); WBC 13.5 10x3/uL (4.8-10.8)
--- NOTE | 2016-05-21 06:00 | NUR ---
PRN PAIN MEDS GIVEN. URINAL NOTED AND FULL TO THE RIM OF CLEAR, CARO URINE SLIGHTLY BLOOD-TINGED. EMPTIED. DENIES NEEDS. WILL MONITOR.
--- NOTE | 2016-05-21 08:31 | NUR ---
AWAKE AND ALERT-ENCOURAGED TO AMBULATE IN [id number] EDEMA CONTINUED TO L FOOT-FAINT PALPABLE PULSE-STATED STILL PAIN -WITH DECREASED AMOUNT SINCE ADMISSIONS--ELDERLY LADY REMAINS IN CHAIR BY [id number] STATE THAT THEY HAVE A WAY HOME-PERSONAL CAR IF DISCHARGE OCCURS TODAY-NOTED GURDEEP SALINE LOCKS TO FOREARMS IN PLACE-KBRN
[2016-05-21] MEDS ORDERED: HYDROCODON-ACE1 EAC7 PO (13:00)
--- NOTE | 2016-05-21 13:39 | NUR ---
1230-DR POPE IN UNIT AND SPOKE WITH PT-STRESSED NEEDING TO TAKE MEDICATION PRESCRIBED-AND INFORMED PATIENT THAT OFFICE WILL CALL SUNDAY TO MAKE 2 WEEK APPOINTMENT-DR BRAVO IN UNIT- AND SPOKE WITH PATIENT REGARDING CURRENT STATUS-AND WILL SEND [employer] HOME HOUSE CALLS TO HIS HOME TO ASSESS STATUS-PT AGREED TO SAME AND GAVE CURRENT ADDRESS [facility] [address]--SAME FAXED TO [phone] [employer] CALLS INTAKE FORM AND FACESHEET-BILATERAL PERIPHERAL IV'S D/C'D PER PROTOCOL WITH TIPS INTACT 9840-PT DISCHARGED IN WHEELCHAIR TO [facility]
--- NOTE | 2016-05-22 13:10 | TEE ---
PATIENT:ORLANDO ELIAS JR MEDICAL RECORD: [id number] LOCATION:[place] [address] AGE OF PATIENT: 50 ADMISSION DATE: 05/15/16 SEX: M REFERRING PHYSICIAN: INTERPRETING PHYSICIAN: BRIAN BENITO MD TRANSESOPHAGEAL ECHOCARDIOGRAM JAXON CHARGE Y INDICATIONS: EVALUATE LV FOR THROMBUS VS. TUMOR PREMEDICATIONS: PATIENT'S RESPONSE PROCEDURE DOPPLER MEASUREMENTS: LVIT LA PA 108 RA LVOT 98 RVOT 98 Asc. Ao 122 AV Gradient Peak 5.99 AV Mean 3.03 AV Area 2.3 MV Gradient Peak 10.88 MV Mean 3.38 MV Area INTERPRETATION: Doppler: 2-D: COLOR FLOW DOPPLER NORMAL SALINE STUDY: MISCELLANOUS: DIAGNOSIS: PLAN: Loader Helper:10 Dr. Montiel Strap Buckler Machine: 1 DANYA MOTLEY COMMENTS: DATE OF SERVICE: 05/17/2016 Transesophageal Note DESCRIPTION OF PROCEDURE: After general sedation via TIVA, via anesthesia, the transesophageal Omniplane probe was placed into the distal esophagus to proximal stomach without difficulty. FINDINGS: LVH present. LV internal dimensions are normal. Wall motion is TRANSESOPHAGEAL ECHOCARDIOGRAM REPORT [id number] ORLANDO ELIAS JR normal. ____. Node is made of 2 pedunculated masses at the LV apex and the high lateral wall difficult to differentiate between thrombus and tissue density. There is some smoke surrounding both masses. Aortic valve is tricuspid. No stenosis by Doppler interrogation. The left atrium is normal. Mitral valve shows no prolapse. Trace MR only. Only right-sided chamber is grossly normal. Trace TR only. At the end of the procedure, the transesophageal Omniplane probe was turned posteriorly and this showed no atherosclerotic debris in the descending aorta. IMPRESSION: Two LV cavity masses as described above. TRANSINT:[id number] Voice Confirmation ID: [id number] DOCUMENT ID: [id number] at 1310 CC: [id number] DICTATION DATE: 05/17/16 1447 BROADBAND TECHNICIAN: 05/18/16 0045 DIS IN 05/21/[address] [facility] [address] [place] [id number]
--- NOTE | 2016-05-26 12:24 | EC ---
PATIENT:ORLANDO ELIAS JR DATE OF SERVICE: 05/15/16 SEX: M MEDICAL RECORD: [id number] DATE OF : [birth year] LOCATION:[place] [address] AGE OF PATIENT: 50 ADMISSION DATE: 05/15/16 REFERRING PHYSICIAN: INTERPRETING PHYSICIAN: CORKY PEREZ M.D. ECHOCARDIOGRAM REPORT ECHO CHARGES 4 ECHO COMPLETE CLINICAL DIAGNOSIS: CARDIOMYOPATHY ECHOCARDIOGRAPHIC MEASUREMENTS (adult normal given) AC root (d.<3.7cm) 3.6 LV Septum d (<1.2 cm> 1.3 Valve Excursion 1.7 LV Septum (systole) 1.8 Left Atria (s.<4.0cm> 4.7 LVPW d(<1.2cm) 1.3 RV (d.<2.3cm) 1.4 LVPW (sytole) 1.8 LV diastole(<5.6CM) 5.6 MV E-F(>70mm/sec) LV systole 3.7 LVOT Diameter 1.9 MV exc.(>10mm) 1.5 Est.ejection fraction (50-75%) Pericardial Effusion N DOPPLER: LVIT A 34.0 E 115 LA RVSP 29 LVOT 98 AOP1/2T 364 Asc. Ao 122 RVOT 98 RA PA 108 AV Gradient Peak 5.99 AV Mean 3.03 AV Area 2.3 MV Gradient Peak 10.88 MV Mean 3.38 MV Area COMMENTS: Production Line Assembler: Sabino GUADARRAMA Probe Operator:2 Dr. Perez TAPE# PACS DATE OF SERVICE: 05/16/2016 REFERRING PHYSICIAN: Devi Beaulieu MD. INDICATION: Cardiomyopathy. DESCRIPTION: Left ventricle demonstrates left ventricular hypertrophy. No regional wall motion abnormalities are seen. Estimated ejection fraction is mildly impaired and around 45%. The apex contracts well. There is a mobile structure noted at the tip of the apex. It appears to be a couple of ECHOCARDIOGRAM REPORT [id number] ORLANDO ELIAS JR centimeters in diameter. It does not appear to be heavily calcified. Its motion appears to be that it may be attached to a stalk. In the other apical views, there appeared to be smaller structures that have similar density noted at the apex as well. There is no evidence of any anterior wall hypokinesis. I do not think this represents a thrombus. The mitral valve is structurally normal. There is trivial regurgitation seen. Left atrium is mildly dilated. The aortic valve is trileaflet. There is mild insufficiency seen, but no evidence of stenosis. Right ventricle is mildly dilated. Tricuspid valve is normal. There is mild regurgitation seen. Right atrium is mildly dilated. There is no pericardial effusion noted. IMPRESSION: 1. Mild left ventricular dysfunction with ejection fraction of 45%. This is markedly improved from his previous angiogram revealing an ejection fraction of 10% in November. 2. Mild tricuspid regurgitation. 3. There appears to be a mobile mass at the tip of the apex. It may be connected by a stalk. I do not think this represents a thrombus because of the density and also, there is no evidence of any anterior wall hypokinesis to suggest this is a thrombus. 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 This may be the source of embolization to his leg. RECOMMENDATIONS: We will likely proceed with a transesophageal echo to further define this left ventricular mass. TRANSINT:[id number] Voice Confirmation ID: [id number] DOCUMENT ID: [id number] 05/18/2016 Edited to correct date of service, kailyn. CORKY PEREZ M.D. at 1224 CC: [id number] DICTATION DATE: 05/17/16 0750 WIRE ROPE SLING MAKER: 05/17/16 0901 DIS IN 05/21/16 [facility] [address] [place] [address]
== END 2016-05-21 13:49 | disposition home or self-care (01) | DRG 271 ==
LOC: D.ER 14:49 → D.M2 19:31 → D.CVICU 19:31
PROVIDERS: General Practice; Nurse Practitioner Acute Care; Specialist; ADMIT Family Medicine
DX: I70.222 Atherosclerosis of native arteries of extremities with rest pain, left leg (principal); I42.0 Dilated cardiomyopathy; I25.5 Ischemic cardiomyopathy; I10 Essential (primary) hypertension; E78.5 Hyperlipidemia, unspecified; I25.10 Atherosclerotic heart disease of native coronary artery without angina pectoris; Z72.0 Tobacco use

== ENCOUNTER 2016-06-11 00:49 | Inpatient (IN) | payer MEDICAID ==
[~2016-06-11] VITALS: Ht 172.7 cm; Wt 54.3 kg
--- NOTE | ~2016-06-11 | HEMODYNAMI ---
PATIENT:ORLANDO ELIAS JR MEDICAL RECORD: [id number] : 63 [facility] [place] [id number] ADMISSION DATE: 06/11/16 Generatedon:06/11/20164:13 Patient name: ORLANDO ELIAS Patient #: [id number] SSN: [id number] : 1965 Date of study: 06/11/2016 Page: Of Hemodynamic Procedure Report Patient Data Patient Demographics Procedure consent was obtained First Name: ORLANDO Gender: Male Last Name: JADA Suffix: Patient #: [id number] : 1965 Age: 50 year(s) SSN: [id number] Race: Black Additional ID: [id number] Contact details Address: [address] [place] [address] [place] State: [place] City: [place] Zip code: [address] Past Medical History Allergies: No known allergies Admission Admission Data Admission Date: 06/11/2016 Admission Time: 2:01 Arrival Date: 06/11/2016 Arrival Time: 2:01 Admit Source: Emergency Insurance Payor: Private department health insurance Room #: D.2121 Weight (lbs.): 150 Weight (kg.): 68.04 Lab Results Lab Result Date: 06/11/2016 Lab Result Time: 0:00 Biochemistry Name Units Result Min Max BUN mg/dl 22 --(----)-* 7 18 Creatinine mg/dl 1.4 --(----)*- 0.6 1.3 CBC Name Units Result Min Max Hemoglobin g/dl 14.2 --(*---)-- 13.5 17.5 Procedure Procedure Types Cath Procedure Diagnostic Procedure C [facility] w/Coronaries PCI Procedure Coronary Stent Initial Miscellaneous Procedures Moderate Sedation up to 45 minutes Procedure Description Procedure Date Procedure Date: 06/11/2016 Procedure Start Time: 3:13 Procedure End Time: 3:48 Procedure Staff Name Function Yajaira Johnson RT Scrub Espinoza Perez MD Performing Physician Quang Farrell RN Nurse Kendy Graham RT Monitor Procedure Data Cath Procedure Fluoroscopy Diagnostic fluoroscopy Total fluoroscopy Time: time: 11.6 min 11.6 min Diagnostic fluoroscopy Total fluoroscopy dose: 751 dose: 751 mGy mGy Contrast Material Contrast Material Type Amount (ml) Isovue 370 186 Entry Location Entry Primary Successful Side Size Upsize Upsize Entry Closure Succes sful Closure Location (Fr) 1 (Fr) 2 (Fr) Remarks Device Remarks Femoral Right 6 Fr Exoseal artery Short Estimated blood loss: 5 ml Diagnostic catheters Device Type Used For End Catheter Placement Cordis 5Fr JL 4.0 Multi-vessel Catheter (MP) Angiography Cordis 5Fr 3DRC Catheter Right Coronary (MP) Angiography Cordis 5Fr Pigtail LV Angiography Catheter (MP) Procedure Complications No complications Procedure Medications Medication Administration Route Dosage Oxygen NC 2 l/min Lidocaine 2% added to field 20 Heparin Flush Bag added to field 2 bags (1000units/500ml NS) 0.9% NaCl I.V. 100 ml/hr Benadryl I.V. 25 mg Heparin Bolus I.V. 7000 units Cardene I.C. 300 mcg Integrilin (Bolus I.V. 6.2 ml 2mg/ml) Plavix P.O. 300 mg Hemodynamics Rest HGB: 14.2 (g/dl) Heart Rate: 115 (bpm) Pressure Samples Time Site Value (mmHg) Purpose Heart Use Rate(bpm) 3:19 LV 142/7,10 Snapshot 107 3:21 AO 158/93(119) Pullback 106 3:21 LV 153/1,21 Pullback 106 Gradients Valve Time Site 1 Site 2 Mean SEP/DFP Peak To Heart Use (mmHg) (sec/min) Peak Rate (mmHg) (bpm) Aortic 3:21 LV AO 0 10 0 106 153/1,21 158/93(119) Calculations Valve P-P Mean Valve Index Valve Source Name Gradient Area Flow (cm2) Aortic 0 0 0 0 Snapshots Pre Cath Intra NCS Post Cath Vital Signs Time Heart Resp SPO2 etCO2 [id number] NIBP (mmHg) Rhythm Pain Sedati on Rate (ipm) (%) (mmHg) (mmHg) Status Level (bpm) 3:06:12 117 17 95 0 0 138/102(121) NSR w/ ST 0 (11) 10(A) Elevation , No pain 3:10:14 115 13 97 0 0 139/99(123) NSR w/ ST 0 (11) 10(A) Elevation , No pain 3:14:16 111 16 97 0 0 139/100(117) NSR w/ ST 0 (11) 10(A) Elevation , No pain 3:18:18 105 14 100 0 0 140/99(124) NSR w/ ST 0 (11) 10(A) Elevation , No pain 3:22:19 106 14 100 0 0 143/107(127) NSR w/ ST 0 (11) 10(A) Elevation , No pain 3:26:23 105 15 98 0 0 142/102(120) NSR w/ ST 0 (11) 10(A) Elevation , No pain 3:30:27 106 15 96 0 0 141/104(121) NSR w/ ST 0 (11) 10(A) Elevation , No pain 3:34:30 105 16 97 0 0 136/89(116) NSR w/ ST 0 (11) 10(A) Elevation , No pain 3:38:32 105 18 100 0 0 137/93(113) NSR w/ ST 0 (11) 10(A) Elevation , No pain 3:42:36 107 15 97 0 0 155/91(115) NSR w/ ST 0 (11) 10(A) Elevation , No pain 3:46:44 108 14 100 0 0 139/101(120) NSR w/ ST 0 (11) 10(A) Elevation , No pain Medications Time Medication Route Dose Verified Delivered Reason Notes Effectiveness by by 3:06:05 Heparin Flush added 2 Espinoza Espinoza used for Bag to bags Chris Perez MD procedure (1000units/500ml field NS) 3:06:18 0.9% NaCl I.V. 100 Espinoza Buffie Per physician ml/hr Chris Farrell RN 3:06:44 Oxygen NC 2 Espinoza Buffie used for l/min Chris Farrell RN procedure 3:06:56 Lidocaine 2% added 20ml Espinoza Espinoza for local to vial Chris Perez MD anesthetic field 3:07:53 Benadryl I.V. 25 mg Espinoza Buffie used for Chris Farrell RN procedure 3:23:09 Heparin Bolus I.V. 7,000 Espinoza Buffie for units Perez MD Farrell RN anticoagulation 3:30:25 Cardene I.C. 300 Espinoza Espinoza for mcg Chris Perez MD vasodilation 3:45:41 Integrilin I.V. 6.2 Espinoza Buffie for (Bolus 2mg/ml) ml Chris Farrell RN antiplatelet therapy 3:59:56 Plavix P.O. 300 Espinoza Buffie for crushed mg Chris Farrell RN antiplatelet with therapy pudding for possible dyphagia. Procedure Log Time Note 2:46:40 Informed consent obtained and on chart 2:47:32 Lab Result : Creatinine 1.4 mg/dl 2:47:32 Lab Result : BUN 22 mg/dl 2:47:32 Lab Result : Hemoglobin 14.2 g/dl 2:47:49 Diagnostic Cath Status : Elective 2:48:22 Admit Source: Emergency department 2:48:29 Arrival Date: 06/11/2016 2:01:00 AM 2:48:36 Insurance Payor : Private health insurance 2:48:46 Quang Farrell RN sent for patient. Start room use. 2:48:47 Time tracking: Regular hours 2:48:52 Plan of Care:Hemodynamics will remain stable., Cardiac rhythm will remain stable., Comfort level will be maintained., Respiratory function will remain adequate., Patient/ family verbilizes understanding of procedure., Procedure tolerated without complication., Recovers from procedure without complications.. 3:05:08 Patient received from ED to CCL 1 Alert and oriented. Tansferred to table in Supine position. 3:05:09 Warm blankets applied, and sisi hugger turned on for patient comfort. 3:05:10 Correct patient and procedure confirmed by team. 3:05:10 ECG and BP/O2 sat monitors applied to patient. 3:05:11 Vital chart was started 3:05:12 Baseline sample Acquired. 3:05:22 Rhythm: sinus tachycardia, w/ ST elevation 3:05:23 Full Disclosure recording started 3:05:27 H&P Date Dictated: 06/11/2016 New H&P dictated by physician.. 3:05:29 Pre-procedure instructions explained to patient. 3:05:30 Pre-op teaching completed and patient verbalized understanding. 3:05:31 Family in waiting room. 3:05:33 Patient NPO since Midnight. 3:05:37 Is the patient allergic to Iodine/contrast media? No. 3:05:38 Was the patient premedicated? No 3:05:39 Is patient on blood thinner?Yes 3:05:46 ACC The patient was administered the following blood thiners within the last 24 hours: ACCPlavix, Eliquis 3:05:48 Patient diabetic? No. 3:05:52 Previous problem with sedation/anesthesia? No ? 3:05:55 Snore? Unknown 3:05:57 Sleep apnea? Unknown 3:05:58 Deviated septum? Unknown 3:05:59 Opens mouth fully? Yes 3:06:00 Sticks out tongue? Yes 3:06:03 Airway obstruction? Unknown ? 3:06:05 Heparin Flush Bag (1000units/500ml NS) 2 bags added to field was administered by Espinoza Perez MD; used for procedure; 3:06:06 Dentures? Unknown ? 3:06:09 Pre procedure: right dorsailis pedis pulse 1+ Palpable, but thready & weak; easily obliterated 3:06:11 Patient pain scale 0/10 ?. 3:06:18 0.9% NaCl 100 ml/hr I.V. was administered by Quang Farrell RN; Per physician; 3:06:21 IV patent on arrival in right forearm with 0.9% NaCl at [facility]. 3:06:25 Lab results completed and on chart. 3:06:29 Right groin area was prepped with chlora-prep and draped in sterile fashion 3:06:30 Alarms reviewed by R. N. 3:06:31 Sharps counted by scrub and verified by R.N. 3:06:33 Physician arrived 3:06:33 --------ALL STOP TIME OUT------ 3:06:34 Final Timeout: patient, procedure, and site verified with staff and physician. All members of the team are in agreement. 3:06:36 Right groin site verified by team. 3:06:39 Physical assessment completed. ASA score P 4 - A patient with severe systemic disease that is a constant threat to life as per Yajaira TRUONG(R). 3:06:43 Sedation plan: IV Moderate Sedation Versed, Fentanyl 3:06:44 Oxygen 2 l/min NC was administered by Buffie Farrell RN; used for procedure; 3:06:49 Use device set Femoral Dx 3:06:51 Acist Syringe opened to sterile field. 3:06:51 Bag Decanter opened to sterile field. 3:06:52 Medline Cath Pack opened to sterile field. 3:06:53 St Johnny 260cm J .035 wire opened to sterile field. 3:06:54 Acist Hand Control opened to sterile field. 3:06:54 Acist Manifold opened to sterile field. 3:06:55 Diagnostic Infinity 5Fr Multipack catheter opened to sterile field. 3:06:55 Tegaderm 4 x 4 opened to sterile field. 3:06:56 Lidocaine 2% 20ml vial added to field was administered by Espinoza Perez MD; for local anesthetic; 3:07:53 Benadryl 25 mg I.V. was administered by Quang Farrell RN; used for procedure; 3:09:05 Procedure started. 3:13:07 Patient Weight : 150 kg 3:13:33 Local anesthetic to right femoral artery with Lidocaine 2% by Espinoza Perez MD.INITIAL ACCESS ONLY 3:13:48 A 6 Fr Short sheath was inserted into the Right Femoral artery 3:14:01 Terumo 6Fr Cuddy Sheath opened to sterile field. 3:14:06 A Cordis 5Fr JL 4.0 Catheter (MP) was advanced over the wire and used for Multi-vessel Angiography. 3:14:16 LCA angiography performed. 3:14:20 Injector settings: Ml/sec: 3, Volume: 6, 3:16:11 Catheter removed. 3:16:20 A Cordis 5Fr 3DRC Catheter (MP) was advanced over the wire and used for Right Coronary Angiography. 3:16:50 RCA angiography performed. 3:16:52 Injector settings: Ml/sec: 3, Volume: 6, 3:17:11 Cordis 6FR XBLAD 3.5 guide catheter opened to sterile field. 3:17:12 Gamez BMW [place] 2 J-tip 300cm 0.014 guide wir opened to sterile field. 3:17:14 Konbini BasixCompak Inflation Kit opened to sterile field. 3:17:26 Catheter removed. 3:17:49 High Pressure Extension Tubing (Chris) opened to sterile field. 3:18:22 A Cordis 5Fr Pigtail Catheter (MP) was advanced over the wire and used for LV Angiography. 3:19:44 LV hemodynamics recorded. 3:19:47 LV gram done using JOHNS 3:19:49 Injector settings: Ml/sec: 5, Volume: 15, 3:21:07 EF : 20 % 3:21:09 Catheter removed. 3:21:15 Proceeding to intervention. 3:21:42 6 Fr xblad 3.5 guide catheter was inserted over the wire 3:21:50 bmw wire advanced. 3:23:09 Heparin Bolus 7,000 units I.V. was administered by Quang Farrell RN; for anticoagulation; 3:24:40 Wire advanced across lesion. 3:27:01 Inflation number: 1 A [place] Sci Ross 2.0 X 20 balloon was prepped and advanced across the Mid LAD, then inflated to 10 JOHN for 0:10 (min:sec). 3:27:42 Inflation number: 2 The [place] Sci Ross 2.0 X 20 balloon was reinflated across the Mid LAD, to 8 JOHN for 0:09 (min:sec). 3:28:05 Inflation number: 3 The [place] Sci Ross 2.0 X 20 balloon was reinflated across the Mid LAD, to 8 JOHN for 0:10 (min:sec). 3:30:02 Balloon removed over the wire. 3:30:25 Cardene 300 mcg I.C. was administered by Espinoza Perez MD; for vasodilation; 3:34:03 Inflation number: 4 The [place] Sci Ross 2.0 X 20 balloon was reinflated across the Mid LAD, to 14 JOHN for 0:10 (min:sec). 3:37:22 Balloon removed over the wire. 3:38:55 Inflation Number: 5 A Medtronic Integrity 2.5 X 26 stent was prepped and advanced across the Mid LAD. The stent was deployed at 13 JOHN for 0:10 (min:sec). 3:40:21 Stent catheter was removed intact over wire. 3:43:13 Inflation Number: 6 A Medtronic Integrity 2.75 X 18 stent was prepped and advanced across the Mid LAD. The stent was deployed at 14 JOHN for 0:10 (min:sec). 3:45:30 Stent catheter was removed intact over wire. 3:45:31 Wire removed. 3:45:32 Guide catheter removed. 3:45:41 Integrilin (Bolus 2mg/ml) 6.2 ml I.V. was administered by Quang Farrell RN; for antiplatelet therapy; 3:45:41 Cordis 6Fr Exoseal opened to sterile field. 3:46:22 Sheath removed intact; hemostasis achieved with Exoseal to the Right Femoral artery. 3:46:35 Procedure ended.(Physican Out) 3:47:08 Fluoroscopy time 11.60 minutes. 3:47:11 Fluoroscopy dose: 751 mGy 3:47:11 Flurop Dose total: 751 3:47:18 Contrast amount:Isovue 370 186ml. 3:47:20 Sharps counted by scrub and verified by R.N. 3:47:22 Insertion/operative site no bleeding no hematoma. 3:47:44 Post-op/insertion site Right Femoral artery dressed using a 4 x 4 and Tegaderm. 3:47:47 Post right femoral artery:stable 3:47:49 Post Procedure Pulses reassessed and unchanged 3:47:52 Post procedure rhythm: unchanged. 3:47:56 Estimated blood loss: 5 ml 3:47:58 Post procedure instruction explained to patient.Patient verbalizes understanding. 3:47:59 Patient needs reinforcement of post procedure teaching. 3:48:24 Procedure type changed to Cath procedure, Diagnostic procedure, LHC, LHC w/Coronaries, PCI procedure, Coronary Stent Initial, Miscellaneous Procedures, Moderate Sedation up to 45 minutes 3:48:25 Procedure and supply charges have been captured, reviewed, submitted and are correct. 3:48:29 Procedure Complication : No complications 3:48:32 Vital chart was stopped 3:48:32 See physician's report for complete and final results. 3:48:38 Report given to [facility]. 3:48:41 Patient transfered to [facility] with Stretcher. 3:48:45 Procedure ended. 3:48:45 Full Disclosure recording stopped 3:49:19 ACC-PCI Only Patient was given prescriptions, or instructed by Espinoza Perez MD to start/continue the following medications upon discharge: Plavix 3:49:21 End room use (Document Last) 3:59:56 Plavix 300 mg P.O. was administered by Quang Farrell RN; for antiplatelet therapy; crushed with pudding for possible dyphagia. Intervention Summary Intervention Notes Time ActionType Lesion and Equipment Action# Pressure Duration Attributes Used 3:27:01 Inflate Mid LAD [place] 1 10 00:10 balloon Sci Ross 2.0 X 20 balloon 3:27:42 Reinflate Mid LAD [place] 2 8 00:09 balloon Sci Ross 2.0 X 20 balloon 3:28:05 Reinflate Mid LAD [place] 3 8 00:10 balloon Sci Ross 2.0 X 20 balloon 3:34:03 Reinflate Mid LAD [place] 4 14 00:10 balloon Sci Ross 2.0 X 20 balloon 3:38:55 Place stent Mid LAD Medtronic 5 13 00:10 Integrity 2.5 X 26 stent 3:43:13 Place stent Mid LAD Medtronic 6 14 00:10 Integrity 2.75 X 18 stent Device Usage Item Name Manufacture Quantity Catalog Number Hospital Part Current Mini mal Lot# / Charge Number Stock Stock Serial# Code Acist Acist 1 [id number] 20 Syringe Medical Systems Inc Bag Microtek 1 [id number] 5 Cleversafe Inc. Medline Cardinal 1 [id number] 873029 [address] St Johnny 1 [id number] 480594 30 260cm J .035 wire Acist Hand Acist 1 23054 835156 5 Control Medical Systems Inc Acist Acist 1 32524 841106 5 Manifold Medical Systems Inc Diagnostic Cardinal 1 [id number] 681839 30 Infinity Health 5Fr Multipack catheter Tegaderm 4 3M 1 [id number] 951352 5 x 4 Terumo 6Fr Terumo 1 [id number] 814322 40 Cuddy Sheath Cordis 5Fr Cardinal 1 985786 5 JL 4.0 Health Catheter (MP) Cordis 5Fr Cardinal 1 010536 5 3DRC Health Catheter (MP) Cordis 6FR Cardinal 1 [id number] 906123 10 XBLAD 3.5 Health guide catheter Gamez BMW Gamez 1 [id number] 208139 5 [place] 2 Vascular J-tip 300cm 0.014 guide wir Merit Merit 1 [id number] 417481 15 [employer] Medical Inflation Kit High Merit 1 [id number] 047783 10 Pressure Medical Extension Tubing (Perez) Cordis 5Fr Cardinal 1 [id number] 5 Pigtail Health Catheter (MP) [place] Sci [place] 1 [id number] 066080 1 [id number] Ross Scientific 2.0 X 20 balloon Medtronic Medtronic 1 [id number] 925585 7 [id number] Integrity 2.5 X 26 stent Medtronic Medtronic 1 [id number] 567299 6 [id number] Integrity 2.75 X 18 stent Cordis 6Fr Cardinal 1 [id number] 806397 10 [facility] Signature Audit [place] Stage Time Signature Unsigned Intra-Procedure 06/11/2016 Kendy Graham 4:13:34 AM RT(R) Signatures Monitor : Kendy Graham RT Signature : Date : Time : [place] [id number] [facility] [address]
--- NOTE | ~2016-06-11 | HEMODYNAMI ---
PATIENT:ORLANDO ELIAS JR MEDICAL RECORD: [id number] : 63 LOCATION:[address] [[email or web address]]T# [id number] ADMISSION DATE: 06/11/16 Generatedon:06/12/201615:46 Patient name: ORLANDO ELIAS Patient #: [id number] SSN: [id number] : 1965 Date of study: 06/12/2016 Page: Of Hemodynamic Procedure Report Patient Data Patient Demographics Procedure consent was obtained First Name: ORLANDO Gender: Male Last Name: JADA Suffix: Patient #: [id number] : 1965 Age: 50 year(s) SSN: [id number] Race: Black Additional ID: [id number] Contact details [address]: [address] [place] [address] [place] State: [place] City: [place] Zip code: [address] Past Medical History Allergies Allergen Reaction Date Comments Reported Penicillins 06/12/2016 Other allergy 06/12/2016 FLU VAC Admission Admission Data Admission Date: 06/11/2016 Admission Time: 2:01 Arrival Date: 06/11/2016 Arrival Time: 2:01 Admit Source: Emergency Insurance Payor: Private department health insurance Room #: D.2121 Weight (lbs.): 150 Weight (kg.): 68.04 Lab Results Lab Result Date: 06/11/2016 Lab Result Time: 0:00 Biochemistry Name Units Result Min Max BUN mg/dl 22 --(----)-* 7 18 Creatinine mg/dl 1.4 --(----)*- 0.6 1.3 CBC Name Units Result Min Max Hemoglobin g/dl 14.2 --(*---)-- 13.5 17.5 Procedure Procedure Types Cath Procedure PCI Procedure PTCA Initial Miscellaneous Procedures Moderate Sedation up to 45 minutes Procedure Description Procedure Date Procedure Date: 06/12/2016 Procedure Start Time: 14:59 Procedure End Time: 15:46 Procedure Staff Name Function Espinoza Rossi MD Performing Physician Raffy TRUONG Scrub Robyn Wilks RN Nurse Robinson Gorman RT Monitor Procedure Data Cath Procedure Fluoroscopy Diagnostic fluoroscopy Total fluoroscopy Time: 7.2 time: 7.2 min min Diagnostic fluoroscopy Total fluoroscopy dose: 597 dose: 597 mGy mGy Contrast Material Contrast Material Type Amount (ml) Isovue 300 67 Entry Location Entry Primary Successful Side Size Upsize Upsize Entry Closure Succes sful Closure Location (Fr) 1 (Fr) 2 (Fr) Remarks Device Remarks Femoral Right 6 Fr Exoseal artery Short Procedure Complications No complications Procedure Medications Medication Administration Route Dosage Oxygen NC 2 l/min Heparin Flush Bag added to field 2 bags (1000units/500ml NS) Lidocaine 2% added to field 20 Fentanyl I.V. 50 mcg Heparin Bolus I.V. 6800 units Fentanyl I.V. 25 mcg Fentanyl I.V. 25 mcg Hemodynamics Rest HGB: 14.2 (g/dl) Heart Rate: 140 (bpm) Snapshots Pre Cath Intra NCS Post Cath Vital Signs Time Heart Resp SPO2 etCO2 SD9abva NIBP (mmHg) Rhythm Pain Sedat ion Rate (ipm) (%) (mmHg) (mmHg) Status Level (bpm) 14:44:09 125 24 98 0 0 133/94(107) NSR w/ ST 0 (11) 10(A) Elevation , No pain 14:48:09 138 31 100 0 0 126/100(108) NSR w/ ST 0 (11) 10(A) Elevation , No pain 14:53:01 141 34 100 0 0 143/104(130) NSR w/ ST 0 (11) 10(A) Elevation , No pain 14:57:11 131 20 100 0 0 115/76(94) NSR w/ ST 0 (11) 10(A) Elevation , No pain 15:01:15 131 27 100 0 0 105/64(92) NSR w/ ST 0 (11) 10(A) Elevation , No pain 15:05:15 127 27 100 0 0 96/69(77) NSR w/ ST 0 (11) 10(A) Elevation , No pain 15:09:12 121 24 100 0 0 103/68(84) NSR w/ ST 0 (11) 10(A) Elevation , No pain 15:13:10 119 22 100 0 0 98/71(77) NSR w/ ST 0 (11) 10(A) Elevation , No pain 15:17:08 120 22 100 0 0 99/67(82) NSR w/ ST 0 (11) 10(A) Elevation , No pain 15:21:05 120 24 100 0 0 96/68(77) NSR w/ ST 0 (11) 10(A) Elevation , No pain 15:25:01 121 27 100 0 0 112/73(85) NSR w/ ST 0 (11) 10(A) Elevation , No pain 15:29:00 120 19 100 0 0 107/77(87) NSR w/ ST 0 (11) 10(A) Elevation , No pain 15:33:00 121 25 100 0 0 107/71(85) NSR w/ ST 0 (11) 10(A) Elevation , No pain 15:36:58 121 23 100 0 0 102/74(82) NSR w/ ST 0 (11) 10(A) Elevation , No pain 15:40:55 120 23 0 0 102/73(86) NSR w/ ST 0 (11) 10(A) Elevation , No pain 15:44:48 98 8 0 0 115/84(95) NSR w/ ST 0 (11) 10(A) Elevation , No pain Medications Time Medication Route Dose Verified Delivered Reason Notes Effectiveness by by 14:43:21 Oxygen NC 2 Espinoza Robyn Per physician l/min Chris Wilks RN 14:43:30 Heparin Flush added 2 Espinoza Espinoza used for Bag to bags Chris Rossi MD procedure (1000units/500ml field NS) 14:43:42 Lidocaine 2% added 20ml Espinoza Espinoza used for to vial Chris Rossi MD procedure field 14:50:31 Fentanyl I.V. 50 Espinoza Robyn for sedation mcg Chris Wilks RN 15:09:02 Heparin Bolus I.V. 6800 Espinoza Robyn for dose units Chris Wilks RN anticoagulation verified with dr rossi 15:17:19 Fentanyl I.V. 25 Espinoza Robyn for sedation camelia Wilks RN 15:23:22 Fentanyl I.V. 25 Espinoza Robyn for sedation camelia Wilks RN Procedure Log Time Note 13:55:32 Robyn Lashaun RN sent for patient. Start room use. 13:56:44 Patient Weight : 150 kg 14:08:28 ACC Patient presents with Unstable Angina CCS Anginal Class 3--Marked limitation of physical activity, angina occurs with ordinary activity.. 14:08:30 Diagnostic Cath status Urgent 14:08:43 Time tracking: Regular hours 14:08:48 Plan of Care:Hemodynamics will remain stable., Cardiac rhythm will remain stable., Comfort level will be maintained., Respiratory function will remain adequate., Patient/ family verbilizes understanding of procedure., Procedure tolerated without complication., Recovers from procedure without complications.. 14:33:34 Patient received from PCU to CCL 1 Alert and oriented. Tansferred to table in Supine position. 14:33:35 Warm blankets applied, and sisi hugger turned on for patient comfort. 14:33:35 Correct patient and procedure confirmed by team. 14:33:37 Signed procedure consent form obtained from patient. 14:33:38 ECG and BP/O2 sat monitors applied to patient. 14:33:39 Full Disclosure recording started 14:43:07 Vital chart was started 14:43:21 Oxygen 2 l/min NC was administered by Robyn Wilks RN; Per physician; 14:43:30 Heparin Flush Bag (1000units/500ml NS) 2 bags added to field was administered by Espinoza Rossi MD; used for procedure; 14:43:42 Lidocaine 2% 20ml vial added to field was administered by Espinoza Rossi MD; used for procedure; 14:46:31 Baseline sample Acquired. 14:46:37 Baseline sample Acquired. 14:46:41 Rhythm: sinus tachycardia 14:46:59 H&P Date Dictated: 06/12/2016 Within 30 days and on chart.. 14:47:01 Pre-procedure instructions explained to patient. 14:47:15 Unable to provide pre-op teaching due to educational barrier. pt unable to talk 14:47:20 Family in patients room. 14:47:21 Patient NPO since Midnight. 14:47:27 Patient allergic to Penicillins 14:47:38 Patient allergic to Other allergyFLU VAC 14:47:40 Is the patient allergic to Iodine/contrast media? No. 14:47:44 Is patient on blood thinner?Yes 14:47:47 ACC The patient was administered the following blood thiners within the last 24 hours: ACCPlavix 14:48:34 Patient diabetic? No. 14:48:35 ----Pre-sedation anethsthesia assessment.---- 14:48:38 Previous problem with sedation/anesthesia? Unknown ? 14:48:39 Snore? Unknown 14:48:41 Sleep apnea? Unknown 14:48:42 Deviated septum? No 14:48:45 Opens mouth fully? Unknown 14:48:48 Sticks out tongue? Unknown 14:48:50 Airway obstruction? Unknown ? 14:48:54 Dentures? No ? 14:48:57 Pre procedure: right dorsailis pedis pulse 1+ Palpable, but thready & weak; easily obliterated 14:49:01 Patient pain scale 0/10 ?. 14:49:08 IV patent on arrival in left antecubital with 0.9% NaCl at 10ml/hr. 14:49:16 Right groin area was prepped with chlora-prep and draped in sterile fashion 14:49:17 Alarms reviewed by R. N. 14:49:17 Sharps counted by scrub and verified by R.N. 14:49:18 --------ALL STOP TIME OUT------ 14:49:19 Final Timeout: patient, procedure, and site verified with staff and physician. All members of the team are in agreement. 14:49:20 Right groin site verified by team. 14:49:25 Physical assessment completed. ASA score P 3 - A patient with severe systemic disease as per Espinoza Rossi MD. 14:49:30 Sedation plan: IV Moderate Sedation Versed, Fentanyl 14:49:39 Use device set Femoral PCI 14:49:40 Acist Syringe opened to sterile field. 14:49:41 Acist Hand Control opened to sterile field. 14:49:41 Bag Decanter opened to sterile field. 14:49:41 Medline Cath Pack opened to sterile field. 14:49:42 Terumo 6Fr Herminie Sheath opened to sterile field. 14:49:42 St Johnny 260cm J .035 wire opened to sterile field. 14:49:43 Merit BasixCompak Inflation Kit opened to sterile field. 14:49:43 Acist Manifold opened to sterile field. 14:49:43 Tegaderm 4 x 4 opened to sterile field. 14:50:31 Fentanyl 50 mcg I.V. was administered by Robyn Wilks RN; for sedation; 14:52:47 Gamez BMW Hiko 2 J-tip 300cm 0.014 guide wir opened to sterile field. 14:52:47 High Pressure Extension Tubing (Chris) opened to sterile field. 14:53:41 Procedure started. 14:59:24 Zero performed for pressure channel P1 14:59:27 Zero performed for pressure channel P1 14:59:51 Local anesthetic to right femoral artery with Lidocaine 2% by Espinoza Rossi MD.INITIAL ACCESS ONLY 14:59:59 A 6 Fr Short sheath was inserted into the Right Femoral artery 15:00:08 Cordis 6FR XBLAD 3.5 guide catheter opened to sterile field. 15:00:24 ACC PCI Site: [facility] has 90% stenosis. 15:00:27 ACC Pre-intervention DALTON Flow is 3. 15:07:47 6 Fr XBLAD 3.5 guide catheter was inserted over the wire 15:09:02 Heparin Bolus 6800 units I.V. was administered by Robyn Wilks RN; for anticoagulation; dose verified with dr rossi 15:12:32 Cordis 6Fr Exoseal opened to sterile field. 15:12:38 BMW J wire advanced. 15:15:04 The Medtronic Integrity 3.5 X 18 stent was advanced then removed because of failure to cross lesion 15:15:20 Gamez Whisper J 300cm 0.014 guide wire opened to sterile field. 15:15:34 WHISPER wire advanced. 15:17:19 Fentanyl 25 mcg I.V. was administered by Robyn Wilks RN; for sedation; 15:22:22 The Medtronic Integrity 3.5 X 18 stent was advanced then removed because of failure to cross lesion 15:23:22 Fentanyl 25 mcg I.V. was administered by Robyn Wilks RN; for sedation; 15:23:34 Wire removed. 15:25:48 Inflation number: 1 A [place] [facility] Bent 2.0 X 12 balloon was prepped and advanced across the Mid CX, then inflated to 12 JOHN for 0:34 (min:sec). 15:33:28 Balloon removed over the wire. 15:33:30 Wire removed. 15:33:30 Guide catheter removed. 15:33:35 Contrast amount:Isovue 300 67ml. 15:33:51 Sheath removed intact; hemostasis achieved with Exoseal to the Right Femoral artery. 15:33:53 Procedure ended.(Physican Out) 15:34:09 Fluoroscopy time 07.20 minutes. 15:34:18 Fluoroscopy dose: 597 mGy 15:34:18 Flurop Dose total: 597 15:34:20 Sharps counted by scrub and verified by R.N. 15:34:21 Insertion/operative site no bleeding no hematoma. 15:34:24 Post-op/insertion site Right Femoral artery dressed using a 4 x 4 and Tegaderm. 15:34:27 Post right femoral artery:stable 15:34:28 Post Procedure Pulses reassessed and unchanged 15:34:31 Post procedure: right dorsailis pedis pulse 1+ Palpable, but thready & weak; easily obliterated. 15:34:36 Post procedure rhythm: sinus tachycardia 15:34:38 Post procedure instruction explained to patient.Patient verbalizes understanding. 15:34:59 Procedure type changed to Cath procedure, PCI procedure, PTCA Initial, Miscellaneous Procedures, Moderate Sedation up to 45 minutes 15:35:02 Procedure and supply charges have been captured, reviewed, submitted and are correct. 15:38:07 Procedure Complication : No complications 15:38:46 St Johnny Femstop Arch Gold opened to sterile field. 15:45:59 Femstop placed over the right femoral artery at 102 mmHg. Hemostasis achieved. 15:46:02 Vital chart was stopped 15:46:03 See physician's report for complete and final results. 15:46:06 Report given to PCU. 15:46:18 Patient transfered to PCU with Bed. 15:46:21 Procedure ended. 15:46:21 Full Disclosure recording stopped 15:46:24 End room use (Document Last) Intervention Summary Intervention Notes Time ActionType Lesion and Equipment Action# Pressure Duration Attributes Used 15:15:04 Discard Medtronic Stent Integrity 3.5 X 18 stent 15:22:22 Discard Medtronic Stent Integrity 3.5 X 18 stent 15:25:48 Inflate Mid CX [place] 1 12 00:34 balloon Sci Bent 2.0 X 12 balloon Device Usage Item Name Manufacture Quantity Catalog Number Hospital Part Current Mini mal Lot# / Charge Number Stock Stock Serial# Code Acist Acist 1 90691 617225 071394 848054 20 Syringe Medical Systems Inc Acist Hand Acist 1 54439 666316 866071 340590 5 Control Medical Systems Inc Bag Microtek 1 2002S 243386 50744 704517 5 Decanter Medical Inc. Medline Cardinal 1 [id number] 615043 80638 236309 5 Cath Pack Health Terumo 6Fr Terumo 1 RCT437 744987 661973 490952 [address] St Johnny 1 724545 011304 664917 045339 30 260cm J .035 wire Merit Merit 1 QQ3278 240091 268387 557405 15 BasixCompak Medical Inflation Kit Acist Acist 1 51684 966955 485493 744899 5 Manifold Medical Systems Inc Tegaderm 4 3M 1 1626W 198464 550204 239713 5 x 4 Gamez BMW Gamez 1 [id number] 942133 991084 889780 5 Hiko 2 Vascular J-tip 300cm 0.014 guide wir High Merit 1 [id number] 316997 71051 079760 10 Pressure Medical Extension Tubing (Rossi) Cordis 6FR Cardinal 1 [id number] 572795 443025 964004 10 XBLAD 3.5 Health guide catheter Cordis 6Fr Cardinal 1 EX600 253253 809069 259065 10 Exoseal Health Medtronic Medtronic 1 [id number] 122632 484095 3 [id number] Integrity 3.5 X 18 stent Gamez Gamez 1 [id number] 926584 708941 990146 5 Whisper J Vascular 300cm 0.014 guide wire Quincy Sci Quincy 1 [id number] 148872 277170 969887 1 [id number] QFO Labs Scientific 2.[address] Johnny 1 F15701 248707 342958 044410 5 Femstop Arch Gold Signature Audit [place] Stage Time Signature Unsigned Intra-Procedure 06/12/2016 Robinson Gorman 3:46:53 PM RT(R) Signatures Monitor : Robinson Gorman RT Signature : Date : Time : [address] [place] [address]
[~2016-06-11 00:49] MED LIST changes: +HYDROCODON-ACE1 EAC7 PO
[2016-06-11 02:04] LABS: BASOPHILS 0.5 % (0-2); EOSINOPHILS 1.3 % (0-7); HEMATOCRIT 41.7 % (42.0-54.0); HEMOGLOBIN 14.2 g/dL (13.5-17.5); IMMATURE GRANULOCYTES 0.4 % (0-5); MCH 28.9 pg (26.0-34.0); MCHC 34.1 g/dL (31.0-37.0); MCV 84.8 fL (80.0-100.0); MEAN PLATELET VOLUME 9.6 fL (7.4-10.4); MONOCYTES 8.4 % (2-11); NEUTROPHILS 76.4 % (40-80); PLATELET COUNT 336 10x3/uL (130-400); RBC 4.92 10x6/uL (4.20-6.10); RDW 14.7 % (11.5-14.5); WBC 18.4 10x3/uL (4.8-10.8)
[2016-06-11 02:19] LABS: ALBUMIN 3.2 g/dL (3.4-5.0); ALKALINE PHOSPHATASE 233 U/L (46-116); ALT (SGPT) 34 U/L (10-68); BILIRUBIN - TOTAL 0.64 mg/dL (0.2-1.3); CALC OSMOLALITY 277 mosm/kg (275-300); CALCIUM 10.7 mg/dL (8.5-10.1); CARBON DIOXIDE 26.5 mmol/L (21.0-32.0); CHLORIDE - SERUM 97 mmol/L (98-107); CREATININE - SERUM 1.4 mg/dL (0.6-1.3); GLUCOSE 123 mg/dL (74-106); POTASSIUM - SERUM 4.5 mmol/L (3.5-5.1); PROTEIN - SERUM 8.9 g/dL (6.4-8.2); SODIUM 137 mmol/L (136-145); UREA NITROGEN 22 mg/dL (7-18); eGFR NON AFRICAN AMERICAN 57 mL/min (90-120)
[2016-06-11 02:38] LABS: AMYLASE - SERUM 48 U/L (25-115); LIPASE 82 U/L (73-393); PRO BNP 12227 pg/mL (0-125)
[2016-06-11 02:47] LABS: CREATINE KINASE 1762 UL (21-232)
[2016-06-11 02:48] LABS: TROPONIN-I 35.705 ng/mL (0.000-0.060)
[2016-06-11 02:49] LABS: CKMB 156.4 U/L (0.0-3.6)
[2016-06-11 03:00] LABS: APTT 26.5 SECONDS (22.8-39.4); INR 1.14 (0.85-1.17); PROTIME 14.5 SECONDS (11.6-15.0)
[2016-06-11 04:33] VITALS: BP 149/115; BMI 22.8
[2016-06-11 07:33] VITALS: BP 141/101
[2016-06-11 08:00] VITALS: BP 139/97
--- NOTE | 2016-06-11 09:32 | NUR ---
TELEMETRY ST. HR 107. RESP UL ON 02 2L NC. IV PATENT. GROIN STABLE. WILL CONT. PLAN OF CARE.
--- NOTE | 2016-06-11 12:15 | NUR ---
DR. BURGESS NOTIFIED OF B/P 191/114. NEW ORDERS GIVEN.
[2016-06-11 16:00] VITALS: BP 137/84
--- NOTE | 2016-06-11 18:55 | NUR ---
DR SHOEMAKER HERE TO SEE PT, STATES HE IS ORDERING GEODON FOR PT'S CONFUSION AND RESTLESSNESS. ALSO STATES HE WANTS THE PT IN A JORDIN BED RESTRAINT FOR SAFETY. DR SHOEMAKER STATES THE PT IS AT A HIGH RISK FOR INJURING HIMSELF. ORDERS PLACED IN CPOE AND CALL TO NURSING MULTIPLE COIL WINDER, ARJUN SEPULVEDA TO ORDER A JORDIN BED AT THIS TIME. PT IS IN DIRECT VIEW OF NURSES STATION AND ALL FALL PRECAUTIONS ARE IN PLACE.
--- NOTE | 2016-06-11 20:05 | NUR ---
PT CONTINUES TO BE RESTLESS AND YELLING OUT. FLAILING LEFT LEG OFF THE BED. PT FREQ ASSISTED WITH LEGS BACK TO BED. BED ALARM SET. MOTHER SITS AT BEDSIDE. SPOKE WITH NURSING SIGNAL PROCESSING ENGINEER, CURRENTLY THERE ARE NO JORDIN BEDS AVAILABLE. GEODON 10 MG IM GIVEN TO LEFT VG. WILL MONITOR FREQ FOR SAFETY.
[2016-06-11 20:23] VITALS: BP 172/91
--- NOTE | 2016-06-11 21:21 | NUR ---
PT RESTING WITH EYES CLOSED AND RESP EVEN AND UNLABORED. NO FURTHER RESTLESSNESS OR AGITATION NOTED. WILL CONT TO MONITOR FREQ FOR SAFETY.
--- NOTE | 2016-06-11 22:45 | NUR ---
PT CONT TO BE CALM AND RESTING COMFORTABLY. MOTHER REMAINS ST THE BEDSIDE. WILL CONT TO MONITOR.
--- NOTE | 2016-06-12 00:26 | NUR ---
PT B/P 179/92 - PT GIVEN VASOTEC 1.25 MG IV AT THIS TIME FOR HYPERTENSION. WILL MONITOR.
[2016-06-12 00:52] VITALS: BP 179/92
[2016-06-12 04:38] VITALS: BP 174/100
[2016-06-12 06:53] LABS: ANION GAP 20.4 mmol/L (8-16); CALCIUM 10.6 mg/dL (8.5-10.1); CARBON DIOXIDE 23.6 mmol/L (21.0-32.0)
[2016-06-12 06:54] LABS: CREATININE - SERUM 2.5 mg/dL (0.6-1.3)
[2016-06-12 07:05] LABS: BASOPHILS 0.4 % (0-2); EOSINOPHILS 0.3 % (0-7); HEMATOCRIT 34.4 % (42.0-54.0); HEMOGLOBIN 11.3 g/dL (13.5-17.5); IMMATURE GRANULOCYTES 0.5 % (0-5); LYMPHOCYTES 7.7 % (15-50); MCH 28.2 pg (26.0-34.0); MCHC 32.8 g/dL (31.0-37.0); MCV 85.8 fL (80.0-100.0); MONOCYTES 8.1 % (2-11); PLATELET COUNT 340 10x3/uL (130-400); RBC 4.01 10x6/uL (4.20-6.10); RDW 14.9 % (11.5-14.5); WBC 25.1 10x3/uL (4.8-10.8)
--- NOTE | 2016-06-12 07:30 | NUR ---
RESTING QUIETLY NAD NOTED
[2016-06-12 10:10] VITALS: BP 151/115
--- NOTE | 2016-06-12 11:01 | NUR ---
Rehab Prescreening Consult recieved and the chart has been reviewed. He is [place] Private Options which is not accepted in the rehab at [facility]. Ofelia Ibanez RN Clinical Liaison, Rehab
--- NOTE | 2016-06-12 12:52 | NUR ---
PRE OP GIVEN FOR CATH
[2016-06-12 12:54] VITALS: BP 140/99
[2016-06-12 14:43] VITALS: Ht 172.7 cm; Wt 54.3 kg
[2016-06-12 14:50] LABS: HEMATOCRIT 41.4 % (42.0-54.0); HEMOGLOBIN 13.7 g/dL (13.5-17.5); MCH 28.6 pg (26.0-34.0); MCHC 33.1 g/dL (31.0-37.0); MCV 86.4 fL (80.0-100.0); MEAN PLATELET VOLUME 9.6 fL (7.4-10.4); PLATELET COUNT 243 10x3/uL (130-400); RBC 4.79 10x6/uL (4.20-6.10); RDW 15.2 % (11.5-14.5); WBC 27.5 10x3/uL (4.8-10.8)
--- NOTE | 2016-06-12 15:10 | NUR ---
Patient Name: ORLANDO ELIAS Admission Status: ER Accout number: [id number] Admission Date: 06-11-2016 : 1965 Admission Diagnosis:CEREBRAL INFARCTION, UNSPECIFIED Attending: LUBA Current LOS: 1 Anticipated DC Date: 06-13-2016 Planned Disposition: Inpatient Rehab Primary Insurance: [place] PRIVATE OPTIONS [place] PLANNED EXTERNAL PROVIDER: [facility] INPATIENT REH[facility] Discharge Planning Comments: * Is the patient Alert and Oriented? No 0 * How many steps to enter\\exit or inside your home? NONE 0 * PCP DR. GARCIA 0 * Pharmacy [facility] * Preadmission Environment Home with Family 0 * ADLs Independent 0 * Equipment None 0 * Other Equipment NO MEDICAL EQUIPMENT PROVIDER PREFERENCE 0 * List name and contact numbers for known caregivers / representatives who currently or will assist patient after discharge: HAFSA MOSS, MOTHER, 0 * Community resources currently utilized None 0 * Please name any agencies selected above. NONE 0 * Additional services required to return to the preadmission environment? Yes * Can the patient safely return to the preadmission environment? Yes 0 * Has this patient been hospitalized within the prior 30 days at any hospital? Yes 0 CM RECEIVED ORDER FOR INPATIENT REHAB PRESCREENING, SPOKE TO VLAD OF [facility] INPATIENT [facility] WHO INFORMED CM THAT PT CANNOT BE ACCEPTED AT [facility] DUE TO INSURANCE. CM MET WITH PT AND HIS MOTHER IN ROOM TO DISCUSS DISCHARGE PLANNING AND NEEDS. PT DID NOT VERBALIZE, SHOOK HEAD TO INDICATE YES TO ALL QUESTIONS EVEN ONES THAT SHOULD HAVE BEEN NO, SUCH ARE YOU AT HOME/AT HOSPITAL (BOTH YES) IS IT NIGHTTIME/DAYTIME (BOTH YES). PT'S MOTHER ANSWERED ALL ASSESSMENT QUESTIONS AND REPORTS PT LIVES WITH HER AT HOME AND WAS INDEPENDENT IN HIS CARE UNTIL THIS HAPPENED. PT HAS NO MEDICAL EQUIPMENT AND NO OUTSIDE SERVICES ASSISTING IN THE HOME. CM DISCUSSED AVAILABILITY OF HOME HEALTH, REHAB SERVICES AND MEDICAL EQUIPMENT WELL INPATIENT REHAB PRESCREEN ORDER. PT'S MOTHER WOULD LIKE PT TO BE EVALUATED FOR REHAB AT "[facility]" AND DOES NOT WANT HIM OUTSIDE OF [place]. PT'S MOTHER DOES NOT DRIVE RIGHT NOW BECAUSE HER INSURANCE AND SHE IS HAVING TO GET RIDES FROM FRIENDS TO GET TO THE HOSPITAL EVERY DAY. PT'S MOTHER REPORTS SHE WILL FIND A FRIEND TO PICK PT UP FOR DISCHARGE HOME AFTER REHAB. CM CALLED [facility] IN[facility], , SPOKE TO SHEYLA, WHO WILL SCREEN PT FOR ADMISSION ONCE PHYSICAL AND OCCUPATIONAL THERAPY EVALUATIONS ARE COMPLETED. CM FAXED INITAL REFERRAL TO [facility] AT [phone]. CM TO FAX UPDATE WITH PYSICAL AND OCCUPATIONAL THERAPY EVALUATIONS ONCE COMPLETED TO [facility]. Recycling Crew Supervisor: Sheng Steel
[2016-06-12 15:14] LABS: ANION GAP 20.9 mmol/L (8-16); CALCIUM 9.9 mg/dL (8.5-10.1); POTASSIUM - SERUM 4.9 mmol/L (3.5-5.1)
[2016-06-12 15:22] LABS: CREATININE - SERUM 3.2 mg/dL (0.6-1.3)
--- NOTE | 2016-06-12 16:03 | NUR ---
BACK FROM DIRECTOR ECONOMIC. V/S STABLE. RIGHT GROIN SOFT WITH FEM STOP IN PLACE. PPP.TELEMERTY SHOWS SB 49. DENIES ANY NEEDS. WILL MONITOR
[2016-06-12 16:07] LABS: LYMPHOCYTES 22 % (15-50); NEUTROPHILS 78 % (40-80); PLATELET ESTIMATE NORMAL
[2016-06-12] MEDS ORDERED: ELIQUIS5 MG PO ×2 (16:24→18:20)
[2016-06-12 19:00] VITALS: BP 128/98
--- NOTE | 2016-06-12 20:12 | NUR ---
VOMITED UP MODERATE AMT OF COFFEE GROUND MATERIAL. ESTELLA GUADALUPE APN NOTIFIED AND ORDERS RECEIVED. MONITOR SHOWS ST @ 138
[2016-06-12 20:56] LABS: HEMATOCRIT 38.6 % (42.0-54.0); HEMOGLOBIN 13.1 g/dL (13.5-17.5)
--- NOTE | 2016-06-12 21:07 | NUR ---
bathed and cleaned up. NO SKIN BREAKDOWN. SCDS REMOVED FOR ASSESSMENT. L FOOT ANTERIOR AT ANKLE HAS DRY PATCH. LOTION APPLIED. WARM AND DRY. ZOFRAN 4 MG GIVEN IV FOR NAUSEA. LAB HERE FOR H&H. WILL CONTINUE TO MONITOR. CATH SITE CLEAN, DRY NO EDEMA AND NO BLEEDING OR HEMATOMA.
[2016-06-13] VITALS: BP 170/107
--- NOTE | 2016-06-13 01:12 | NUR ---
PATIENT TURNED Q2. BOTH PATIENT AND MOM SLEEPING.
[2016-06-13 04:00] VITALS: BP 171/119
[2016-06-13 06:04] LABS: BASOPHILS 0.2 % (0-2); EOSINOPHILS 0.1 % (0-7); HEMOGLOBIN 11.6 g/dL (13.5-17.5); IMMATURE GRANULOCYTES 0.6 % (0-5); LYMPHOCYTES 4.6 % (15-50); MCHC 34.1 g/dL (31.0-37.0); MEAN PLATELET VOLUME 10.1 fL (7.4-10.4); MONOCYTES 8.9 % (2-11); NEUTROPHILS 85.6 % (40-80); PLATELET COUNT 205 10x3/uL (130-400); RDW 15.1 % (11.5-14.5); WBC 30.9 10x3/uL (4.8-10.8)
[2016-06-13 06:10] LABS: ANION GAP 17.8 mmol/L (8-16); CALCIUM 9.7 mg/dL (8.5-10.1); POTASSIUM - SERUM 4.8 mmol/L (3.5-5.1)
[2016-06-13 06:22] LABS: CREATININE - SERUM 4.7 mg/dL (0.6-1.3)
--- NOTE | 2016-06-13 07:55 | NUR ---
ASSESSMENT COMPLETED. PT HAS GARBLED SPEECH, BUT SEEMS TO UNDERSTAND WHAT IS SAID TO HIM. FAMILY AT BEDSIDE. RIGHT FORARM IV WITH NA BICARB AT 100. SCDS ON.NO FUTHER VOMITING. SINUS TACH AT 130.SR UP WITH CALL LIGHT IN REACH
[2016-06-13 08:03] VITALS: BP 106/87
--- NOTE | 2016-06-13 08:13 | NUR ---
IN BED EYES CLOSED RESP UNLABORED SKIN W/D COLOR WNL MOTHER AT BEDSIDE
[2016-06-13 11:58] VITALS: BP 124/81
[2016-06-13 12:08] LABS: HEMATOCRIT 34.2 % (42.0-54.0); HEMOGLOBIN 11.5 g/dL (13.5-17.5)
--- NOTE | 2016-06-13 13:39 | NUR ---
OT NOTE: PT WAS SEEN SUPINE IN BED. PTS EYES APPEARED ROLLED BACK , BUT AFTER VERBALLY AROUSING PT, HE WOKE UP. PERFORMED BED MOB WITH MAX ASSIST; STATIC SITTING WITH MAX ASSIST; WT BEARING ON R SIDE, WHILE LIMITING USE OF L UE FROM PUSHING BACK
--- NOTE | 2016-06-13 15:34 | NUR ---
Patient Name: ORLANDO ELIAS Encounter No: [id number] : 1965 Primary Insurance: [place] PRIVATE OPTIONS [place] Anticipated DC Date: 06-13-2016 Planned Disposition: Inpatient Rehab VS SENIOR CARE FACILITY External Planned Provider: [facility] INPATIENT REHAB VS SNF TO BE DETERMINED BY FAMILY DCP follow-up note: MIKE SPOKE TO RAFFY OF [facility] IN[facility] WHO HAS SCREENED PT AND MET WITH PT AND HIS MOTHER IN ROOM. RAFFY WILL CONTINUE TO WATCH PT AND WHEN MEDICALLY STABLE, MAKE AN ADMISSION DETERMINATION. RAFFY REPORTS DR NOTES FROM TODAY INDICATE POOR PROGNOSIS AND PT MAY BE MORE APPROPRIATE FOR SENIOR CARE FACILITY. CM MET WITH PT AND HIS MOTHER IN ROOM. PT STILL NOT RESPONDING. CM PROVIDED INFORMATION AND DISCUSSED AVAILABILITY OF SENIOR CARE FACILITY REHAB. PT'S MOTHER WANTS TO TALK TO HER SHEET METAL DUCT INSTALLER HELPER AND FRIENDS TO ASSIST IN MAKING THE DECISION TO WHAT FACILITY SHE WOULD LIKE PT REFERRED. CM WAITING MEDICAL STABILITY AND DECISION FROM [facility] INPAT[facility]. CM WAITING PT'S MOTHER TO DECIDE ON WHAT SENIOR CARE FACILITY SHE WOULD LIKE TO REFER PT TO IF [facility] INPATIENT DECLINES PATIENT DUE TO LACK OF CAPACITY / ABILITY TO PARTICIPATE IN INPATIENT REHAB PROGRAM. Sheng Steel, CASE MANAGEMENT
[2016-06-13 16:08] VITALS: BP 117/83
--- NOTE | 2016-06-13 17:11 | NUR ---
OT NOTE: PT COMPLETED BUE PROM TO DECREASE RISK OF SKIN BREAKDOWN. PT COMPLETED POSITIONING . PT COMPLETED GROOMING ADL WITH JUAN Trejo THANK YOU, SHOAIB MCGUIRE/Carley
--- NOTE | 2016-06-13 18:07 | NUR ---
LYING QUIETLY WITH EYES CLOSED. TELEMERTY SHOWS ST. LEES CATH WITH SM AMT URINE BLOOD TINGED. WILL MONITOR.
--- NOTE | 2016-06-13 20:35 | NUR ---
NG TUBE INSERTED ORDERED WITH DARK COFFEE GROUND MATERIAL OBTAINED. PLACEMENT CHECKED BY PUSHING AIR AND GOOD ASCULATION. ALSO CHECKED BY Danuta MIJARES RN. PT GUIDO. WELL. NG SECURED AND PLACED ON LOW INTERMITTENT SUCTION. LEES BLOOD TINGED. SCDS REMOVED TO ASSESS SKIN. NO BREAKDOWN. REAPLIED. MONITOR SHOWS ST @133. TRIED TO SPEAK TO MOM ABOUT A DNR. MOTHER DOES NOT UNDERSTAND.
[2016-06-13 20:43] LABS: ANION GAP 14.9 mmol/L (8-16); CARBON DIOXIDE 30.4 mmol/L (21.0-32.0); POTASSIUM - SERUM 4.3 mmol/L (3.5-5.1)
[2016-06-13 20:44] LABS: CREATININE - SERUM 6.5 mg/dL (0.6-1.3)
[2016-06-13 20:51] LABS: BASOPHILS 0.1 % (0-2); EOSINOPHILS 0.1 % (0-7); HEMOGLOBIN 11.4 g/dL (13.5-17.5); IMMATURE GRANULOCYTES 0.6 % (0-5); LYMPHOCYTES 5.6 % (15-50); MCH 28.4 pg (26.0-34.0); MCHC 33.5 g/dL (31.0-37.0); MCV 84.8 fL (80.0-100.0); MEAN PLATELET VOLUME 9.6 fL (7.4-10.4); MONOCYTES 7.5 % (2-11); NEUTROPHILS 86.1 % (40-80); PLATELET COUNT 179 10x3/uL (130-400); RBC 4.01 10x6/uL (4.20-6.10); RDW 15.1 % (11.5-14.5); WBC 28.4 10x3/uL (4.8-10.8)
[2016-06-13 21:48] VITALS: BP 107/60
--- NOTE | 2016-06-13 22:53 | NUR ---
WENT FOR CT SCAN
[2016-06-14 01:50] VITALS: BP 101/63
--- NOTE | 2016-06-14 05:31 | NUR ---
PT LETHARGIC HOT TO TOUCH BUT NO TEMP. HOWEVER. BP 80/50. NG WITH 400 CC OF BROWN COFFEE GROUND MATERIAL.
[2016-06-14 05:52] VITALS: BP 88/55
--- NOTE | 2016-06-14 06:08 | NUR ---
NOTIFIED BY ROUNDHOUSE FIRER/FIREMAN THAT PTS PULSE IS 35. RAPID CALLED. THEN NO PULSE AND RESP. CODE BLUE CALLED. SPOKE WITH MOTHER AGAIN ABOUT DNR BUT MOTHER WANTS EVERYTHING DONE. SEE CODE SHEET FOR FURTHER DOCUMENTATION.
--- NOTE | 2016-06-14 06:14 | NUR ---
DR. GOULD PRONOUNCED PATIENT @ [phone]. ESTELLA GUADALUPE APN NOTIFIED.
--- NOTE | 2016-06-14 06:58 | NUR ---
LEES REMOVED, IV REMOVED. HOME NOTIFIED.
--- NOTE | 2016-06-14 07:41 | NUR ---
DC TO HOME.PERSONAL ITEMS WITH MOTHER
--- NOTE | 2016-06-15 10:59 | EC ---
PATIENT:ORLANDO ELIAS JR DATE OF SERVICE: 06/11/16 SEX: M MEDICAL RECORD: [id number] DATE OF : [birth year] LOCATION:D. D.212 AGE OF PATIENT: 50 ADMISSION DATE: 06/11/16 REFERRING PHYSICIAN: INTERPRETING PHYSICIAN: CORKY PEREZ M.D. 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 Ao RVOT RA PA AV Gradient Peak AV Mean AV Area MV Gradient Peak MV Mean MV Area COMMENTS: Agricultural Service Technician: Sabino GUADARRAMA Business Insight And Analytics Manager:2 Dr. Perez TAPE# PACS DATE OF SERVICE: 06/11/2016 INDICATION: Status post AL. DESCRIPTION: This is a limited echo to assess ejection fraction after infarction. Left ventricle is mildly dilated. The apex is hypokinetic. The proximal mccarthy move reasonably well. Estimated ejection fraction is in the order of 35% to 40%. In the apex, there appears to be 2-3 cm mass. I cannot tell whether or not attached to a stalk or not. This could represent a thrombus. Mitral valve appears structurally normal. There is no pericardial ECHOCARDIOGRAM REPORT [id number] ORLANDO ELIAS JR effusion seen. IMPRESSION: 1. Moderate left ventricular dysfunction with ejection fraction of 35% to 40% with apical hypokinesis. 2. The patient may have ventricular thrombus near the apex. TRANSINT:[id number] Voice Confirmation ID: [id number] DOCUMENT ID: [id number] CORKY PEREZ M.D. at 1059 CC: [id number] DICTATION DATE: 06/12/16 0644 NETWORK FIREWALL ENGINEER: 06/12/16 0942 DIS IN 06/14/[address] [facility] [address] [place] [address]
--- NOTE | 2016-06-15 10:59 | OP ---
PATIENT NAME: ORLANDO ELIAS JR MEDICAL RECORD: [id number] :63 LOCATION:D. D.2121 ADMISSION DATE:06/11/16 SURGEON: CORKY BURGESS M.D. DATE OF OPERATION: 06/11/2016 PROCEDURES PERFORMED: 1. Selective coronary angiography. 2. Left heart catheterization with ventriculogram. 3. PTCA and stent placed in the LAD INDICATION: A 50-year-old gentleman, who presents with acute anterior wall myocardial infarction. EQUIPMENT USED: A 6-Iranian XB LAD guide, BMW guide wire, 2.0 x 20 mm Guayanilla balloon, 2.5 x 26 mm Integrity stent, 2.75 x 18 mm Integrity stent. DIAGNOSTIC EQUIPMENT: A 5-Iranian JL4, Lorenzo right, pigtail catheter. TECHNIQUE: A 6-Iranian sheath was inserted in retrograde fashion in the right common femoral artery. Next, selective coronary angiography was performed in standard views using 5-Iranian JL4 and Lorenzo right. Left heart catheterization was performed using a pigtail catheter. CORONARY ANATOMY: 1. Left main: Left main trunk is large in caliber. It gives rise to the LAD and circumflex. There is no obstruction. 2. LAD: This is a large caliber vessel. In the mid segment, is 100% occluded. There is no flow seen to the apex. 3. Circumflex: This vessel is moderate in caliber. At the bifurcation point, the proximal segment, there appears to be an 80% stenosis. 4. Right coronary: This vessel is moderate in caliber. It arises from the noncoronary cusp. There appears to be a 60% restenosis in the distal stent before the bifurcation. 5. Left ventricle: The left ventricle is dilated. There is severe global hypokinesis noted. There may be a filling defect at the apex suggestive of thrombus. Estimated ejection fraction is in the order of 20%. DESCRIPTION OF INTERVENTION: A 100 units per kilogram of heparin was infused. A 6-Iranian XB LAD guide was engaged in the left main coronary artery. Next, a BMW guide wire was placed into the distal aspect of the LAD. The mid LAD was predilated with a 2.0 mm x 20 mm Guayan[place] balloon at 14 atmospheres. Injections revealed some muslim of flow and what appeared to be either a long area of thrombus versus dissection. This was at the junction of the mid distal vessel. Despite multiple inflations, there is no real improvement in flow. It felt this might be a flow-limiting dissection. At this point, a 2.5 x 26 mm Integrity stent was placed across this area and the stent was deployed at 14 atmospheres. Injections revealed muslim of flow distally to the apex. At this point, a 2.75 x 18 mm Integrity stent was placed proximal to the 2.5 mm stent as there was still an area of ulceration and thrombus that was not covered. The stent was deployed at 14 atmospheres. Injection revealed both stents to be widely patent. Flow was restored to the apex. 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 The wire would not pass through this area. 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 At this point, the patient received Integrilin bolus and the guidewire were removed. OPERATIVE REPORT [id number] ORLANDO ELIAS JR IMPRESSION: Successful percutaneous transluminal coronary angioplasty of the LAD with muslim of flow. TRANSINT:[id number] Voice Confirmation ID: [id number] DOCUMENT ID: [id number] CORKY BURGESS M.D. at 1059 CC: [id number] DICTATION DATE: 06/11/16 0355 [employer]EN[employer] TESTER: 06/11/16 0924 DIS IN 06/14/16 [id number] [place] [address]
--- NOTE | 2016-06-15 10:59 | OP ---
PATIENT NAME: ORLANDO ELIAS JR MEDICAL RECORD: [id number] :63 LOCATION:D. D.2121 ADMISSION DATE:06/11/16 SURGEON: CORKY BURGESS M.D. DATE OF OPERATION: 06/12/2016 PROCEDURES PERFORMED: PTCA of circumflex. INDICATION: A 50-year-old gentleman presents with anterior wall myocardial infarction. He returns today for completion of staged procedure. EQUIPMENT USED: A 6-Chilean extruded XB LAD guide, Whisper guidewire, 2.0 x 12 mm Lehigh balloon. DESCRIPTION OF INTERVENTION: A 6-Chilean sheath was inserted in retrograde fashion in the right common femoral artery. Next, 100 units per kilogram of heparin was infused. A 6-Chilean XB LAD guide was advanced and engaged in the left main coronary artery. Injections revealed a 99% stenosis involving the proximal circumflex of the bifurcation point. A Whisper wire was placed into the distal circumflex. Attempts were made just primary stent, the vessel. However, it was obvious that the wires going to the stent strut. At this point, a 2.0 x 12 mm Lehigh balloon was advanced along patient was performed through the stent strut and to the circumflex. Injections revealed about a 40% residual stenosis. At this point, the wire and guide were removed. IMPRESSION: Successful percutaneous transluminal coronary angioplasty to the circumflex. TRANSINT:[id number] Voice Confirmation ID: [id number] DOCUMENT ID: [id number] CORKY BURGESS M.D. at 1059 CC: [id number] DICTATION DATE: 06/12/16 1537 POWERBUILDER: 06/13/16 0008 DIS IN 06/14/16 [facility] [address] [id number]
== END 2016-06-14 07:43 | DRG 248 ==
LOC: D.ER 00:49 → D.M2 02:01
PROVIDERS: Family Medicine; Family Medicine Adult Medicine; Internal Medicine; Internal Medicine Cardiovascular Disease; ADMIT Family Medicine
PROC: 4A023N7 Measurement of Cardiac Sampling and Pressure, Left Heart, Percutaneous Approach (ICD-10-PCS; 2016-06-11)
PROC: B2111ZZ Fluoroscopy of Multiple Coronary Arteries using Low Osmolar Contrast (ICD-10-PCS; 2016-06-11)
PROC: B2151ZZ Fluoroscopy of Left Heart using Low Osmolar Contrast (ICD-10-PCS; 2016-06-11)
PROC: 02703EZ Dilation of Coronary Artery, One Artery with Two Intraluminal Devices, Percutaneous Approach (ICD-10-PCS; 2016-06-11 02:48)
PROC: 02703ZZ Dilation of Coronary Artery, One Artery, Percutaneous Approach (ICD-10-PCS; 2016-06-12)
PROC: 0DH673Z Insertion of Infusion Device into Stomach, Via Natural or Artificial Opening (ICD-10-PCS; 2016-06-13)
PROC: 5A12012 Performance of Cardiac Output, Single, Manual (ICD-10-PCS; principal; 2016-06-14)
DX: I21.09 ST elevation (STEMI) myocardial infarction involving other coronary artery of anterior wall (principal); I63.512 Cerebral infarction due to unspecified occlusion or stenosis of left middle cerebral artery; N17.9 Acute kidney failure, unspecified; K92.2 Gastrointestinal hemorrhage, unspecified; K56.7 Ileus, unspecified; I51.9 Heart disease, unspecified; Z86.73 Personal history of transient ischemic attack (TIA), and cerebral infarction without residual deficits; I25.10 Atherosclerotic heart disease of native coronary artery without angina pectoris; Z95.5 Presence of coronary angioplasty implant and graft; I25.5 Ischemic cardiomyopathy; I70.229 Atherosclerosis of native arteries of extremities with rest pain, unspecified extremity; I10 Essential (primary) hypertension; Z72.0 Tobacco use